=== PATIENT | female | born 1945 | race Hispanic/Latino ===

== ENCOUNTER 2017-03-06 12:55 | Emergency (ER) | payer MEDICARE, OTHER ==
[2017-03-06 13:42] LABS: #Eosinphils 0.2 thou/uL (0.0-0.7); #Lymphocytes 2.2 thou/uL (1.20-3.40); #Monocytes 0.4 thou/uL (0.11-0.59); #Neutrophils 5.8 thou/uL (1.40-6.50); %Basophils 0.2 % (0.0-1.0); %Eosinophils 2.2 % (0.0-10.0); %Lymphocytes 25.5 % (21.0-51.0); %Monocytes 5.1 % (0.0-10.0); Mean Platelet Volume 7.1 fL (7.4-10.4); Red Blood Cell (RBC) Count 4.53 mill/uL (4.20-5.40); White Blood Cell (WBC) Count 8.7 thou/uL (4.8-10.8)
[2017-03-06 14:09] LABS: ALT (SGPT) 12 U/L (8-55); AST (SGOT) 22 U/L (5-34); Alkaline Phosphatase 108 U/L (40-150); Anion Gap 14 mmol/L (10-20); BUN (Urea Nitrogen) 18 mg/dL (9.8-20.1); Bilirubin, Total 0.3 mg/dL (0.2-1.2); Calc. Creatinine Clearance 0 mL/min (70-130); Calcium 9.9 mg/dL (7.8-10.44); Carbon Dioxide 20 mmol/L (23-31); Chloride 106 mmol/L (98-107); Estimated GFR-MDRD 59; Globulin 3.9 g/dL (2.4-3.5); Lipase 101 U/L (8-78); Protein, Total 7.7 g/dL (6.0-8.3)
== END 2017-03-06 14:36 | disposition home or self-care (01) ==
LOC: ERS 12:55
DX: R10.12 Left upper quadrant pain (principal); E11.9 Type 2 diabetes mellitus without complications; I10 Essential (primary) hypertension; F32.9 Major depressive disorder, single episode, unspecified; Z79.82 Long term (current) use of aspirin; Z79.4 Long term (current) use of insulin; Z79.899 Other long term (current) drug therapy
CPT/HCPCS: 80053; 83690; 85025; 99284

== ENCOUNTER 2017-03-14 11:21 | Outpatient (CLI) | payer MEDICARE, MEDICAID ==
--- NOTE | 2017-03-14 17:17 | PET ---
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 Initial staging. C65.2. COMPARISON: None. TECHNIQUE: IV injection F-18 Fluorodeoxyglucose (FDG) dose: 13.4 mCi PET and attenuation-correction CT performed from skull base to proximal thighs. FINDINGS: SUV (standard uptake value) numbers given are maximum SUV's: Left kidney is absent. There is a left paraaortic retroperitoneal mass, with surrounding fat strandi ng. It is FDG avid, with SUV of 11.2. This is consistent with a metastatic retroperitoneal lymph nod e. The fat stranding could indicate recent surgery in this location. No other foci of suspicious hyp ermetabolic activity is visualized in any other location in abdominal cavity, pelvic cavity, thoraci c cavity, or cervical nodes. There is asymmetrically increased uptake in various muscles, indicating muscle contraction during the study. IMPRESSION: 1. Status post left nephrectomy. 2. An FDG avid left paraaortic retroperitoneal mass with surrounding fat stranding: a metastatic ly mph node and/or recent postsurgical small hematoma. 3. No other areas of potential metastatic disease. MUKUND Garnica POS: [facility]
== END 2017-03-14 11:22 | disposition home or self-care (01) ==
LOC: PET 11:21
PROVIDERS: ATTEND Internal Medicine Medical Oncology
DX: C65.9 Malignant neoplasm of unspecified renal pelvis (principal); C77.9 Secondary and unspecified malignant neoplasm of lymph node, unspecified; Z90.5 Acquired absence of kidney
CPT/HCPCS: 78815; A9552

== ENCOUNTER 2017-03-20 15:37 | Outpatient (CLI) | payer MEDICARE, MEDICAID ==
[2017-03-20 16:45] LABS: #Eosinphils 0.3 thou/uL (0.0-0.7); #Lymphocytes 1.9 thou/uL (1.20-3.40); #Monocytes 0.5 thou/uL (0.11-0.59); #Neutrophils 5.8 thou/uL (1.40-6.50); %Basophils 0.5 % (0.0-1.0); %Eosinophils 3.9 % (0.0-10.0); %Lymphocytes 22.4 % (21.0-51.0); %Monocytes 5.3 % (0.0-10.0); Hematocrit 39.6 % (36.0-47.0); Mean Platelet Volume 6.5 fL (7.4-10.4); Red Blood Cell (RBC) Count 4.54 mill/uL (4.20-5.40); White Blood Cell (WBC) Count 8.6 thou/uL (4.8-10.8)
[2017-03-20 17:09] LABS: Anion Gap 11 mmol/L (10-20); BUN (Urea Nitrogen) 15 mg/dL (9.8-20.1); Calc. Creatinine Clearance 0 mL/min (70-130); Calcium 9.2 mg/dL (7.8-10.44); Carbon Dioxide 28 mmol/L (23-31); Chloride 103 mmol/L (98-107); Estimated GFR-MDRD 60
== END 2017-03-20 15:38 | disposition home or self-care (01) ==
LOC: LABBT 15:37
PROVIDERS: ATTEND Surgery
DX: Z01.812 Encounter for preprocedural laboratory examination (principal); C64.9 Malignant neoplasm of unspecified kidney, except renal pelvis
CPT/HCPCS: 80048; 85025

== ENCOUNTER 2017-03-23 05:50 | Day surgery (SDC) | payer MEDICARE, MEDICAID ==
[2017-03-20 15:44] VITALS: BMI 47.0
[2017-03-23] MEDS ORDERED: Bupivacaine 0.25% HCL 30 ML VIAL ONE (07:12)
[2017-03-23] MEDS ORDERED: Lidocaine 2% w/Epinephrine 1:200K 20 ML VIAL ONE (07:12)
[2017-03-23] MEDS ORDERED: PHENYLEPHRINE-NS 100 MCG/ML 10 ML SYRINGE ONE (07:38)
[2017-03-23] MEDS ORDERED: Propofol 200 MG/20 ML VIAL ONE (07:38)
[2017-03-23] MEDS ORDERED: Ondansetron HCl/PF 4 MG/2 ML Vial ONE (07:38)
--- NOTE | 2017-03-23 09:27 | RAD ---
SINGLE VIEW OF THE CHEST: COMPARISON: 04/17/13. HISTORY: MediPort placement for renal cell carcinoma. FINDINGS: A single view of the chest shows a normal-size cardiomediastinal silhouette. There is a left subcla vian MediPort with its tip at the superior vena cava. No pneumothorax is seen. There is no evidenc e of consolidation, mass, or pleural effusion. IMPRESSION: Status post MediPort placement without evidence of complication. POS: [facility]
--- NOTE | 2017-03-23 17:16 | PDOC.OP ---
Operative Note - Operative Note Operative Note: PROCEDURE: Left subclavian MediPort placement with fluoroscopic guidance SURGEON: Marielena Acosta M.D. DATE OF PROCEDURE: 03/23/2017 PREOPERATIVE DIAGNOSIS: Recurrent renal cell carcinoma POSTOPERATIVE DIAGNOSIS: Recurrent renal cell carcinoma HISTORY: Patient is diagnosed with renal cell carcinoma. She is status post nephrectomy but has a recurrence in the tumor bed. Chemotherapy and/or immunotherapy has been recommended and the oncologist has requested MediPort placement for this. OPERATIVE PROCEDURE IN DETAIL: After informed consent was obtained and appropriate preoperative antibiotics were administered, the patient was taken to the operating room and placed in supine position and monitored anesthesia care was administered. The patient was then placed in Trendelenburg position and the subclavian vein accessed easily on the first attempt with excellent flow of dark venous non-pulsatile blood. A wire threaded easily and was confirmed to be in the superior vena cava by fluoroscopy. Additional local anesthesia was infused to the skin and subcutaneous tissues lateral and inferior to the access site. The skin incision was extended from the wire laterally and a subcutaneous pocket developed inferiorly. A Mediport was obtained and confirmed to fit in the subcutaneous pocket. This was secured inferiorly to the pectoralis fascia with a Prolene suture, which was clamped, but not tied. The dilator and sheath were then placed over the wire and the dilator and wire removed leaving the sheath in place. The clamped MediPort tubing was tunneled through the sheath, which was then split and removed leaving the MediPort tubing in place. The tubing was adjusted until the tip was confirmed by fluoroscopy to be in the superior vena cava just above the atrium. The tubing was clamped at the skin level and cut and the tubing secured to the port, which was then placed in the subcutaneous pocket. The previously placed suture was secured and two additional sutures were placed to fix the port in place within the pocket. The port was aspirated with the Rodriguez needle and had excellent flow of dark venous non-pulsatile blood and easily flushed without resistance. The subcutaneous tissues were closed with a running Monocryl suture, following which the skin was closed with a running subcuticular Monocryl suture. Dermabond dressings were placed and the hub was again accessed through the skin and confirmed to easily aspirate and easily flush. The course of the catheter was confirmed by fluoroscopy to be smooth with the tip appropriately located in the superior vena cava. The patient was taken her back to the day stay unit in good condition. Estimated blood loss was minimal. There were no complications. There were no specimens.
== END 2017-03-23 09:25 | disposition home or self-care (01) ==
LOC: SDC 05:50
PROVIDERS: ATTEND Surgery
PROC: 0JH60WZ Insertion of Totally Implantable Vascular Access Device into Chest Subcutaneous Tissue and Fascia, Open Approach (ICD-10-PCS; principal; 2017-03-23)
DX: C64.2 Malignant neoplasm of left kidney, except renal pelvis (principal); E11.9 Type 2 diabetes mellitus without complications; I10 Essential (primary) hypertension; E78.5 Hyperlipidemia, unspecified; M19.90 Unspecified osteoarthritis, unspecified site; Z79.4 Long term (current) use of insulin; Z79.82 Long term (current) use of aspirin; Z79.899 Other long term (current) drug therapy; Z96.1 Presence of intraocular lens; Z96.653 Presence of artificial knee joint, bilateral; Z90.710 Acquired absence of both cervix and uterus; Z90.5 Acquired absence of kidney; Z90.49 Acquired absence of other specified parts of digestive tract; Z98.890 Other specified postprocedural states
CPT/HCPCS: 36561; 71010; C1788; J1642; J2405; J2704; S0020

== ENCOUNTER 2017-04-06 08:52 | Day surgery (SDC) | payer MEDICARE, MEDICAID ==
[2017-04-06] MEDS ORDERED: Dexamethasone 20 MG in Sodium Chloride 0.9% 50 ML IVPB SCH (09:30)
[2017-04-06] MEDS ORDERED: Fosaprepitant Dimeglumine 150 MG in Sodium Chloride 0.9% 250 ML 150 ML IVPB SCH (09:30)
[2017-04-06] MEDS ORDERED: SODIUM CHLORIDE 0.9% IV SCH (09:45)
[2017-04-06] MEDS ORDERED: Palonosetron HCl 0.25 MG in Sodium Chloride 0.9% 50 ML IVPB SCH (09:45)
[2017-04-06] MEDS ORDERED: MANNITOL IV SCH (09:45)
[2017-04-06] MEDS ORDERED: GEMCITABINE HCL IVPB SCH ×2 (09:45→10:00)
[2017-04-06] MEDS ORDERED: CISPLATIN IV SCH (09:45)
[2017-04-06] MEDS ORDERED: GEMZAR IVPB SCH ×2 (09:45→10:00)
[2017-04-06] MEDS ORDERED: SODIUM CHLORIDE 0.9% IVPB SCH ×2 (09:45→10:00)
[2017-04-06] MEDS ORDERED: Sodium Chloride 0.9% 20 ML ONE (10:42)
[2017-04-06 12:20] VITALS: BP 123/60; TEMP 97.5
== END 2017-04-06 17:00 ==
LOC: ONC/OP 08:52
PROVIDERS: ATTEND Internal Medicine Medical Oncology
DX: Z51.11 Encounter for antineoplastic chemotherapy (principal); C65.2 Malignant neoplasm of left renal pelvis; E11.9 Type 2 diabetes mellitus without complications; I10 Essential (primary) hypertension; E78.5 Hyperlipidemia, unspecified; N28.9 Disorder of kidney and ureter, unspecified; Z90.5 Acquired absence of kidney; Z90.49 Acquired absence of other specified parts of digestive tract; Z90.710 Acquired absence of both cervix and uterus; Z90.722 Acquired absence of ovaries, bilateral; Z96.653 Presence of artificial knee joint, bilateral
CPT/HCPCS: 36415; 80053; 82248; 83615; 84100; 84550; 96367; 96413; 96415; 96417; A4216; J1100; J1453; J1642; J2150; J2469; J3480; J7050; J9060; J9201

== ENCOUNTER 2017-04-24 20:35 | Observation (INO) | payer MEDICARE, OTHER ==
[~2017-04-24 20:35] MED LIST: ISOVUE-370 76%-LOCM 1 ML ONE
[2017-04-24] MEDS ORDERED: Nitroglycerin 2% Ointment 1 INCH/1 GM Packet ONE (21:12)
--- NOTE | 2017-04-24 21:13 | RAD ---
PORTABLE CHEST: History: Chest pain. FINDINGS: Lungs are clear. Vascular markings normal. A Mediport catheter remains in place and is unchanged from exam of 03-23-17. Heart and mediastinum unremarkable. IMPRESSION: No acute finding. POS: [facility]
[2017-04-24 21:48] LABS: Band 2 % (5-11); Mean Platelet Volume 6.3 fL (7.4-10.4); Metamyelocyte 1 % (0-0); Myelocyte 1 % (0-0); Neutrophil 38 % (42-75); Nucleated RBC 1 % (0); Reactive Lymphocytes 1 % (0-10); Red Blood Cell (RBC) Count 3.32 mill/uL (4.20-5.40)
[2017-04-24 22:00] LABS: Troponin I Less than 0.010 ng/mL (< 0.028)
[2017-04-24 22:01] LABS: ALT (SGPT) 11 U/L (8-55); AST (SGOT) 17 U/L (5-34); Alkaline Phosphatase 86 U/L (40-150); BUN (Urea Nitrogen) 18 mg/dL (9.8-20.1); Bilirubin, Total 0.2 mg/dL (0.2-1.2); CK (CPK) 97 U/L (29-168); Calc. Creatinine Clearance 0 mL/min (70-130); Calcium 7.9 mg/dL (7.8-10.44); Carbon Dioxide 22 mmol/L (23-31); Chloride 108 mmol/L (98-107); Estimated GFR-MDRD 31; Globulin 2.7 g/dL (2.4-3.5)
[2017-04-24 22:52] LABS: Anion Gap 14 mmol/L (10-20)
--- NOTE | 2017-04-24 23:08 | CT ---
CT ANGIO CHEST WITH IV CONTRAST: Technique: Multiple axial tomograms obtained through the chest with IV enhancement in a pulmonary ang io phase. Multiplanar reconstruction 3D post processing performed. History: Chest pain. Shortness of breath. FINDINGS: Pulmonary arteries show adequate opacification. There is no evidence of pulmonary embolus identified. The lungs are clear of infiltrate. The mediastinum is unremarkable. Images through the upper abdomen show evidence of left nephrectomy. There is soft tissue mass like de nsity at the site of the left renal bed. This could represent residual and recurrent mass or adenopat hy. This is incompletely evaluated. When compared to CT of 05-14-08, both kidneys were present and un remarkable at that time. Correlate clinically regarding this finding. IMPRESSION: 1. No evidence of pulmonary embolus. 2. No acute lung process. 3. Images through the upper abdomen shows evidence of left nephrectomy. There is a soft tissue mass d ensity in the left renal bed. Recommend clinical correlation and follow up as indicated. POS: [facility]
[2017-04-25] MEDS ORDERED: Acetaminophen 325 MG TAB PO PRN (00:24)
[2017-04-25] MEDS ORDERED: Ondansetron HCl/PF 4 MG/2 ML Vial IVP PRN (00:24)
[2017-04-25] MEDS ORDERED: Ondansetron ODT 4 MG TAB SL PRN (00:24)
[2017-04-25 00:49] VITALS: BMI 44.4
[2017-04-25] MEDS ORDERED: Dextrose 5% in Water 1,000 ML IV PRN (02:43)
[2017-04-25] MEDS ORDERED: Dextrose 50% Abboject 50 ML SYRINGE SLOW IVP PRN (02:43)
[2017-04-25] MEDS ORDERED: HumaLOG 300 UNITS/3 ML VIAL SC PRN ×2 (02:43)
--- NOTE | 2017-04-25 02:43 | PDOC.EVN ---
Event Note - Event Note Event Note: [id number] h&p dICTATED 1. Chest pain 2. htn 3. dm TYPE 2 4. VINNY 5. H/O RCC
[2017-04-25] MEDS ORDERED: HYDROcodone/Acetaminophen 10/325 mg Tablet PO PRN (02:44)
[2017-04-25] MEDS ORDERED: PROVENTIL INHALER 6.7 G (200 INHALATIONS) INH PRN (02:44)
[2017-04-25] MEDS ORDERED: Docusate 100 MG CAP PO PRN (02:44)
[2017-04-25] MEDS ORDERED: Morphine ER 30 MG TAB PO PRN (02:44)
[2017-04-25 03:50] LABS: Troponin I 0.016 ng/mL (< 0.028)
[2017-04-25] MEDS: Sodium Chloride 0.9% 1,000 ML IV SCH ×2 (05:19→17:07)
[2017-04-25] MEDS: Nitroglycerin 2% Ointment 1 INCH/1 GM Packet TOP SCH ×3 (05:39→20:58)
--- NOTE | 2017-04-25 05:43 | HP ---
DATE OF ADMISSION: 04/25/2017 CHIEF COMPLAINT: Chest pain. HISTORY OF PRESENT ILLNESS: The patient is a 72-year-old female with past medical history of chest pain, past medical history of renal cell carcinoma, hypertension, diabetes mellitus type 2, currently on chemotherapy for the renal cell carcinoma, came to the ED complaining of chest pain. The patient said she started having chest pain all of a sudden, substernal pressure kind of pain, left side, moderate in intensity, pain resolved at this time. Denies any dyspnea, denies any sweating, denies any nausea with the chest pain. Denies any cough, sputum production. The chest pain persisted so she came to the ER. The pain did not radiate anywhere. PAST MEDICAL HISTORY: As per HPI. PAST SURGICAL HISTORY: MediPort placement, bilateral knee replacements, cholecystectomy. SOCIAL HISTORY: Denies smoking, denies alcohol or illicit drugs. FAMILY HISTORY: Positive for heart problems. MEDICATIONS: Reviewed. ALLERGIES: No drug allergies. REVIEW OF SYSTEMS: CONSTITUTIONAL: Fever, denies any chills. EYES: No problems. NECK: Denies any neck pain. CARDIOVASCULAR: Positive for chest pain. RESPIRATORY: Denies any cough or sputum production. GASTROINTESTINAL: Denies any nausea. Denies any vomiting. MUSCULOSKELETAL: Denies any complaints. INTEGUMENT: Denies any rash. CRANIAL NERVE SYSTEM: Denies syncope. PSYCHIATRIC: Denies anxiety. All other review of systems are reviewed and are negative. PHYSICAL EXAMINATION: VITAL SIGNS: At the time of H&P performed, blood pressure is 136/68, temperature 98.7, heart rate 96, respirations 20, pulse ox 96%. GENERAL: The patient appears comfortable. HEENT: Pupils equal, round, and reactive. ENT: Nares patent. Nose is normal. Ears normal. Teeth intact. Tongue is moist. NECK: Supple, no JVD. CARDIOVASCULAR SYSTEM: S1, S2 present. Regular rate and rhythm. No murmurs, no rubs, no gallops. RESPIRATORY SYSTEM: No wheezing, no rhonchi. Breath sounds bilaterally. GASTROINTESTINAL: Abdomen is soft, nontender, no guarding, no organomegaly, no masses felt. MUSCULOSKELETAL: No edema. NEUROLOGIC: Cranial nerve system; awake, follows commands. Strength intact, sensory intact. PSYCHIATRIC: Mood appears normal. INTEGEMENTARY: No rash seen. LABORATORY DATA: At time of H&P performed, white count 3, hemoglobin 9.7, platelet count is 247. BMP showed sodium 140, potassium 4, chloride 108, CO2 of 22, BUN of 80, creatinine 1.62. Baseline creatinine is 0.96. CT chest, no evidence of PE. ASSESSMENT AND PLAN: The patient is a 72-year-old female. 1. Chest pain, check EKG, plan to check cardiac enzymes. Plan to consult Cardiology. Plan to monitor the patient closely. 2. Hypertension. Monitor blood pressure. Continue blood pressure meds. 3. Diabetes type 2, monitor blood sugars, will give insulin sliding scale. 4. Acute kidney injury. Monitor creatinine. Gentle IV fluids, repeat BMP in a.m. 5. History of renal cell carcinoma, currently on chemo. Monitor the patient closely. The case was discussed in detail with the patient. Patient is full code. MTDD
[2017-04-25] MEDS: Ondansetron ODT 8 MG TAB PO SCH ×4 (05:56→23:59)
[2017-04-25 08:34] LABS: Mean Platelet Volume 6.1 fL (7.4-10.4); Red Blood Cell (RBC) Count 3.33 mill/uL (4.20-5.40); White Blood Cell (WBC) Count 3.4 thou/uL (4.8-10.8)
[2017-04-25 08:43] LABS: Anion Gap 9 mmol/L (10-20); BUN (Urea Nitrogen) 15 mg/dL (9.8-20.1); Calc. Creatinine Clearance 74 mL/min (70-130); Calcium 8.3 mg/dL (7.8-10.44); Carbon Dioxide 24 mmol/L (23-31); Chloride 109 mmol/L (98-107); Estimated GFR-MDRD 38
[2017-04-25 08:48] LABS: Troponin I 0.016 ng/mL (< 0.028)
[2017-04-25] MEDS ORDERED: INSULIN GLARGINE 45 UNIT SC SCH (09:00)
[2017-04-25] MEDS: Gabapentin 300 MG CAP PO SCH ×3 (09:16→20:56)
[2017-04-25] MEDS: Aspirin 325 MG TAB PO SCH (09:16)
[2017-04-25 09:23] LABS: Band 5 % (5-11); Myelocyte 4 % (0-0); Neutrophil 29 % (42-75); Reactive Lymphocytes 1 % (0-10)
[2017-04-25] MEDS: Insulin Detemir 100 UNITS/ML 45 UNITS in Pre-Filled Syringe 1 EACH SC SCH ×2 (09:37→20:57)
--- NOTE | 2017-04-25 12:32 | PDOC.EVN ---
Event Note - Event Note Event Note: Pt seen and exmained, H&P reviewed. I am assuming care. Cardiology reviewed chart, but unalbe to see pt, contacted by nursing to order Stress if it feltindicated. Pt without further CP, no SOb, no N/V/D/C, no cough or sputum, no hemoptysis. Will get cardiolyte stress and thal perfusion scan. If neg, likely home later today. Cr elevated, repeat this morning improved, upper limit of normal
[2017-04-25] MEDS: Acetaminophen 500 MG TAB PO PRN (17:08)
--- NOTE | 2017-04-25 17:15 | NM ---
STRESS ONLY NUCLEAR MEDICINE CARDIAC SPECT WITH EF AND WALL MOTION: 04/25/17 HISTORY: 72-year-old female with history of chest pain, hypertension, diabetes mellitus. Adenosine Sestamibi study was performed. Patient was injected with 29 millicuries technetium 99m Sestamibi intravenously for stress images. COMPARISON: 03/27/11. Multiple scans in the short axis, vertical long axis, and horizontal long axis demonstrates no scan e vidence for overt infarct or ischemia. LHR 0.49. End diastolic volume 89 mL. Ejection fraction of 62%. MYOCARDIAL PERFUSION WALL MOTION: Wall motion is normal. IMPRESSION: Normal stress only cardiac stress with EF and wall motion. POS: [facility]
--- NOTE | 2017-04-25 19:17 | CON ---
DATE OF CONSULTATION: 04/25/2017 HISTORY OF PRESENT ILLNESS: Ms. Rula Martínez is a 72-year-old [place] female who I initially evaluated in 09/2007 for chest discomfort. She underwent a Cardiolite stress test, which showed no evidence of underlying ischemia. Ejection fraction was 63%. She also had another stress test one year prior to that also showed no evidence of ischemia. She presented in 2008 with chest discomfort. Cardiac enzymes were unremarkable. She had been seen by her primary physician in [place] and was referred to [facility]. She apparently was to have a catheterization there, but had chest pain and was hospitalized here. She underwent cardiac catheterization, which revealed normal left ventricular function with an ejection fraction of 50% to 55%. Coronary arteries were normal. I have not seen her since that time. During the interim, she was found to have a renal cell carcinoma and has undergone left nephrectomy in 10/2016. She continued to have left flank pain and was found to have recurrence of renal cell tumor and has been undergoing chemotherapy since March. Yesterday, she had onset of a tightness along the part of the sternum radiating under her left breast and to her back. This started when she was supine in bed. She also had some associated left hand numbness, but no shortness of breath, nausea, vomiting or diaphoresis. Discomfort lasted approximately 2 hours and resolved in the emergency room when she was given aspirin 324 mg and 1 inch of nitro paste was placed topically. She denies any recurrence of discomfort since that time. She denies any similar episodes. She denies any pleuritic component. Cardiac enzymes have been unremarkable. PAST MEDICAL HISTORY: Remarkable for hypertension, diabetes, hypercholesterolemia, history of renal cell carcinoma undergoing chemotherapy and obesity. OPERATIONS: Include bilateral knee replacements, cholecystectomy and left nephrectomy. MEDICATIONS AT HOME: Include amlodipine 10 mg at bedtime, chewable aspirin 81 mg daily, atorvastatin 10 mg at bedtime, stool softener 100 mg daily, gabapentin t.i.d., Glucotrol 1 tablet t.i.d., hydrocodone p.r.n., Lantus 45 units b.i.d., metoprolol 25 b.i.d., morphine sulfate 30 mg q.12 hours p.r.n., ondansetron 8 mg q.6 hours, prochlorperazine q.6 hours p.r.n., Accupril 1.5 mg daily, sertraline 100 at bedtime, Ventolin inhaler 1 puff q.4 hours. p.r.n. ALLERGIES: None. SOCIAL HISTORY: She does not smoke or drink. FAMILY HISTORY: Brother had myocardial infarction. Two brothers had myocardial infarctions. REVIEW OF SYSTEMS: Twelve-point review of systems otherwise unremarkable. PHYSICAL EXAMINATION: VITAL SIGNS: Blood pressure 148/76 and pulse 88. HEENT: PERRL. NECK: Supple. CHEST: Clear. CARDIAC: S1 and S2 are normal without any S3, S4 or murmurs. Carotid upstrokes normal, without bruits. ABDOMEN: Obese, normal bowel sounds, no tenderness. EXTREMITIES: Revealed no clubbing, cyanosis or edema. NEUROLOGIC: Grossly intact. SKIN: Warm and dry. MUSCULOSKELETAL: Revealed palpable lower left sternal tenderness that reproduces her pain. LABORATORY AND IMAGING DATA: EKG revealed normal sinus rhythm and is unremarkable. Hemoglobin 9.6, hematocrit 29.0, white count 3400 and platelets 296,000. Sodium 138, potassium 4.1, chloride 109, carbon dioxide 24, BUN 15 and creatinine was 1.38. Cardiac enzymes are unremarkable. Cholesterol 126, triglycerides 172, HDL 26 and LDL 66. IMPRESSION: 1. Atypical chest discomfort 2 hours in duration with negative cardiac enzymes , occurring at rest. 2. Normal coronary arteries on catheterization, in 12/2008. 3. Musculoskeletal chest wall pain. 4. Hypertension. 5. Diabetes. 6. Hypercholesterolemia. 7. Positive family history. 8. History of renal cell carcinoma, currently undergoing chemotherapy. 9. Obesity. PLAN: Echocardiogram will be performed. She will undergo adenosine Cardiolite testing for further evaluation. With her renal cell carcinoma, consideration may be given to bone scan to further evaluate this area. [facility]
[2017-04-25] MEDS ORDERED: Amlodipine 10 MG TAB PO SCH (21:00)
[2017-04-25] MEDS ORDERED: Atorvastatin Calcium 10 MG TAB PO SCH (21:00)
[2017-04-26] MEDS: Nitroglycerin 2% Ointment 1 INCH/1 GM Packet TOP SCH (05:25)
[2017-04-26] MEDS: Ondansetron ODT 8 MG TAB PO SCH (05:50)
[2017-04-26] MEDS: Sodium Chloride 0.9% 1,000 ML IV SCH (05:50)
[2017-04-26 06:05] LABS: Anion Gap 11 mmol/L (10-20); BUN (Urea Nitrogen) 11 mg/dL (9.8-20.1); Calc. Creatinine Clearance 83 mL/min (70-130); Calcium 8.5 mg/dL (7.8-10.44); Carbon Dioxide 25 mmol/L (23-31); Chloride 107 mmol/L (98-107); Estimated GFR-MDRD 43
[2017-04-26 06:15] LABS: Band 1 % (5-11); Hematocrit 31.9 % (36.0-47.0); Mean Platelet Volume 5.8 fL (7.4-10.4); Metamyelocyte 1 % (0-0); Myelocyte 2 % (0-0); Neutrophil 30 % (42-75); Nucleated RBC 1 % (0); Red Blood Cell (RBC) Count 3.66 mill/uL (4.20-5.40); White Blood Cell (WBC) Count 3.7 thou/uL (4.8-10.8)
[2017-04-26 08:11] VITALS: TEMP 98.8
[2017-04-26] MEDS: Aspirin 325 MG TAB PO SCH (08:39)
[2017-04-26] MEDS: Gabapentin 300 MG CAP PO SCH (08:39)
[2017-04-26] MEDS: Insulin Detemir 100 UNITS/ML 45 UNITS in Pre-Filled Syringe 1 EACH SC SCH (08:40)
[2017-04-26] MEDS: Acetaminophen 500 MG TAB PO PRN (09:27)
[2017-04-26 10:24] VITALS: BP 164/82
--- NOTE | 2017-04-26 11:46 | DIS ---
DATE OF ADMISSION: 04/25/2017 DATE OF DISCHARGE: 04/26/2017 PRIMARY CARE PHYSICIAN: Kami Knott M.D. DISCHARGE DIAGNOSES: 1. Noncardiac chest pain. 2. History of renal cell carcinoma. 3. Diabetes mellitus type 2. 4. Obesity. 5. Essential hypertension. 6. Acute kidney injury. CONSULTATION: Cardiology, Dr. Rigoberto Pena. PROCEDURES: Nuclear thallium stress test that showed no evidence of inducible or reversible ischemia and normal ejection fraction with normal wall motion. HOSPITAL COURSE: Ms. Martínez is a pleasant 72-year-old female who presented in the [facility] department late on 04/24/2017 for evaluation of chest pain. She had a sudden onset of substern al chest pain on the left side without radiation. She rated a moderate intensity around 4-5 and was resolved by the arrival to the ER. She had no shortness of breath or sweating. No diaphoresis, no n ausea. She has not had any recent cough or sputum production. No hemoptysis. The chest pain initia lly persisted. She came to the emergency department for evaluation, but was resolved by the time she got here. It did not radiate anywhere else. She has never had a symptom like this before. Initial workup in the ER, negative biomarkers, creatinine was noted to be elevated at 1.62. We were subsequently called for admission. HOSPITAL COURSE: The patient was seen and examined by Dr. Loja and placed on observation. She w as started on IV hydration, she kept n.p.o. and echocardiogram was ordered. Cardiology consultation was requested and was seen by Dr. Pena. He recommended stress testing and if negative, cleared f or discharge home with outpatient followup. There was some concern with chest pain and her diagnosis of renal cell carcinoma that she could have metastatic disease. Overnight on 04/25/2017-04/26/2017, she had no further chest pain. A stress test done on evening of 04/25/2017 was negative for inducible ischemia and echocardiogram showed normal EF, normal wall motio n and no significant valvular disease. She was discharged home on the morning of 04/26/2017 in stable condition with outpatient followup. S he has an appointment with Dr. Jasso for her renal cell carcinoma next Monday, and already has [facility] physician visit in 2-3 weeks, which I requested that she moved up to sometime in the next 5 -7 days. PHYSICAL EXAMINATION: The patient was seen and examined on the day of discharge. Discharge plan and disposition was discussed with the patient. The patient is present at the bedside. DISCHARGE MEDICATIONS: 1. Lantus 45 units subcu b.i.d. 2. Metoprolol succinate 25 mg b.i.d. 3. Amlodipine 10 mg p.o. at bedtime. 4. Lipitor 10 mg p.o. at bedtime. 5. Aspirin 81 mg daily. 6. Albuterol inhaler 1 puff every 4 hours as needed for shortness of breath or wheezing. 7. Sertraline 100 mg p.o. at bedtime. 8. Quinapril 1.5 mg p.o. daily. 9. Glipizide 10 mg p.o. b.i.d. 10. Gabapentin 300 mg p.o. t.i.d. 11. Morphine sulfate ER 30 mg p.o. q.12 hours as needed for pain. Does not really take this anymore . 12. Hydrocodone as previously taken. 13. Docusate 100 mg p.o. daily p.r.n. constipation. 14. Prochlorperazine 1 every 6 hours. 15. Zofran 8 mg q.6 hours p.r.n. nausea. FOLLOWUP APPOINTMENTS: 1. Primary care physician within a week. 2. Dr. Jasso next Monday. 3. Discharge activity, as tolerated. DISCHARGE DIET: Diabetic, heart healthy diet recommended. DISCHARGE INSTRUCTIONS: Patient instructed to return to the emergency department for worsening or re turn of chest pain.
== END 2017-04-26 10:17 | disposition home or self-care (01) ==
LOC: ERS 20:35 → 2NO 04-25 00:21
PROVIDERS: ADMIT Internal Medicine; ATTEND Internal Medicine
DX: R07.89 Other chest pain (principal); C64.9 Malignant neoplasm of unspecified kidney, except renal pelvis; E11.9 Type 2 diabetes mellitus without complications; I10 Essential (primary) hypertension; N17.9 Acute kidney failure, unspecified; E66.9 Obesity, unspecified; Z68.41 Body mass index [BMI] 40.0-44.9, adult; Z90.49 Acquired absence of other specified parts of digestive tract; Z95.828 Presence of other vascular implants and grafts; Z96.653 Presence of artificial knee joint, bilateral
CPT/HCPCS: 71010; 71275; 78452; 80048 ×2; 80053; 80061; 82550; 82553; 82962 ×2; 84484 ×3; 85025 ×3; 93005; 93017; 93306; 99285; A9500; G0378; 36415; 36416; A4216; J0153; J1815

== ENCOUNTER 2017-05-01 09:37 | Day surgery (SDC) | payer MEDICARE, MEDICAID ==
[2017-05-01] MEDS ORDERED: Sodium Chloride 0.9% 20 ML ONE (09:49)
[2017-05-01] MEDS ORDERED: Fosaprepitant Dimeglumine 150 MG in Sodium Chloride 0.9% 250 ML 150 ML IVPB SCH (10:00)
[2017-05-01] MEDS ORDERED: Sodium Chloride 0.9% 500 ML IVPB SCH (10:15)
[2017-05-01] MEDS ORDERED: SODIUM CHLORIDE 0.9% IVPB SCH ×2 (10:15→11:00)
[2017-05-01] MEDS ORDERED: PALONOSETRON HCL IVPB SCH (10:15)
[2017-05-01] MEDS ORDERED: DEXAMETHASONE IVPB SCH (10:15)
[2017-05-01] MEDS ORDERED: Dexamethasone 20 MG in Sodium Chloride 0.9% 50 ML IVPB SCH (10:30)
[2017-05-01] MEDS ORDERED: Palonosetron HCl 0.25 MG in Sodium Chloride 0.9% 50 ML IVPB SCH (10:30)
[2017-05-01] MEDS ORDERED: SODIUM CHLORIDE 0.9% IV SCH (11:00)
[2017-05-01] MEDS ORDERED: MANNITOL IV SCH (11:00)
[2017-05-01] MEDS ORDERED: CISPLATIN IV SCH (11:00)
[2017-05-01] MEDS ORDERED: GEMCITABINE HCL IVPB SCH (11:00)
[2017-05-01 15:56] VITALS: BP 104/57; TEMP 97.9
== END 2017-05-01 17:10 | disposition home or self-care (01) ==
LOC: ONC/OP 09:37
PROVIDERS: ATTEND Internal Medicine Medical Oncology
DX: Z51.11 Encounter for antineoplastic chemotherapy (principal); C65.2 Malignant neoplasm of left renal pelvis; E11.9 Type 2 diabetes mellitus without complications; I10 Essential (primary) hypertension; E78.5 Hyperlipidemia, unspecified; M19.90 Unspecified osteoarthritis, unspecified site; N17.9 Acute kidney failure, unspecified; E66.9 Obesity, unspecified; Z68.42 Body mass index [BMI] 45.0-49.9, adult; Z79.84 Long term (current) use of oral hypoglycemic drugs; Z79.899 Other long term (current) drug therapy; Z90.49 Acquired absence of other specified parts of digestive tract; Z90.710 Acquired absence of both cervix and uterus; Z90.5 Acquired absence of kidney; Z90.722 Acquired absence of ovaries, bilateral; Z96.653 Presence of artificial knee joint, bilateral; Z98.890 Other specified postprocedural states; Z83.3 Family history of diabetes mellitus
CPT/HCPCS: 36415; 80053; 82248; 83615; 84100; 84550; 96367; 96413; 96417; A4216; C9201; J1100; J1453; J1642; J2150; J2469; J3480; J7050; J9060; J9201

== ENCOUNTER 2017-05-08 09:34 | Day surgery (SDC) | payer MEDICARE, MEDICAID ==
[2017-05-08] MEDS ORDERED: ADMIXTURE FEE IVP SCH (10:15)
[2017-05-08] MEDS ORDERED: ONDANSETRON IVP SCH (10:15)
[2017-05-08] MEDS ORDERED: [UNRECOGNIZED DRUG - OTHER] IVP SCH (10:15)
[2017-05-08] MEDS ORDERED: DEXAMETHASONE IVP SCH (10:15)
[2017-05-08] MEDS ORDERED: ADMIXTURE FEE IVPB SCH (10:30)
[2017-05-08] MEDS ORDERED: [UNRECOGNIZED DRUG - OTHER] IVPB SCH (10:30)
[2017-05-08] MEDS ORDERED: GEMCITABINE HCL IVPB SCH (10:30)
[2017-05-08 11:40] VITALS: BP 135/60; TEMP 98.7
== END 2017-05-08 12:30 | disposition home or self-care (01) ==
LOC: ONC/OP 09:34
PROVIDERS: ATTEND Internal Medicine Medical Oncology
DX: Z51.11 Encounter for antineoplastic chemotherapy (principal); C65.2 Malignant neoplasm of left renal pelvis; E11.9 Type 2 diabetes mellitus without complications; I10 Essential (primary) hypertension; E78.5 Hyperlipidemia, unspecified; Z90.5 Acquired absence of kidney; Z90.49 Acquired absence of other specified parts of digestive tract; Z96.653 Presence of artificial knee joint, bilateral; Z90.710 Acquired absence of both cervix and uterus; Z90.722 Acquired absence of ovaries, bilateral; Z79.82 Long term (current) use of aspirin; Z79.4 Long term (current) use of insulin; Z79.899 Other long term (current) drug therapy
CPT/HCPCS: 36415; 82565; 96367; 96413; J1100; J2405; J7050; J9201

== ENCOUNTER 2017-05-22 10:42 | Day surgery (SDC) | payer MEDICARE, MEDICAID ==
[2017-05-22] MEDS ORDERED: Sodium Chloride 0.9% 20 ML ONE (10:53)
[2017-05-22] MEDS ORDERED: CARBOPLATIN IVPB SCH (12:15)
[2017-05-22] MEDS ORDERED: Palonosetron HCl 0.25 MG in Sodium Chloride 0.9% 50 ML IVPB SCH (12:15)
[2017-05-22] MEDS ORDERED: SODIUM CHLORIDE 0.9% IVPB SCH ×3 (12:15→12:45)
[2017-05-22] MEDS ORDERED: Dexamethasone 20 MG in Sodium Chloride 0.9% 50 ML IVPB SCH (12:15)
[2017-05-22] MEDS ORDERED: GEMCITABINE HCL IVPB SCH ×2 (12:15→12:45)
[2017-05-22 12:50] VITALS: BP 105/55
== END 2017-05-22 17:44 | disposition home or self-care (01) ==
LOC: ONC/OP 10:42
PROVIDERS: ATTEND Internal Medicine Medical Oncology
DX: Z51.11 Encounter for antineoplastic chemotherapy (principal); C65.2 Malignant neoplasm of left renal pelvis; E11.9 Type 2 diabetes mellitus without complications; I10 Essential (primary) hypertension; E78.5 Hyperlipidemia, unspecified; N28.9 Disorder of kidney and ureter, unspecified; M19.90 Unspecified osteoarthritis, unspecified site; E66.9 Obesity, unspecified; Z79.4 Long term (current) use of insulin; Z79.899 Other long term (current) drug therapy; Z90.710 Acquired absence of both cervix and uterus; Z90.722 Acquired absence of ovaries, bilateral; Z90.5 Acquired absence of kidney; Z90.49 Acquired absence of other specified parts of digestive tract; Z96.653 Presence of artificial knee joint, bilateral; Z98.890 Other specified postprocedural states; Z68.41 Body mass index [BMI] 40.0-44.9, adult
CPT/HCPCS: 36415; 80053; 82248; 83615; 84100; 84550; 96367; 96413; 96417; A4216; J1100; J1642; J2469; J7050; J9045; J9201

== ENCOUNTER 2017-05-30 10:01 | Day surgery (SDC) | payer MEDICARE, MEDICAID ==
[2017-05-30] MEDS ORDERED: Sodium Chloride 0.9% 20 ML ONE (10:08)
[2017-05-30] MEDS ORDERED: DEXAMETHASONE IVPB SCH (10:30)
[2017-05-30] MEDS ORDERED: SODIUM CHLORIDE 0.9% IVPB SCH ×2 (10:30)
[2017-05-30] MEDS ORDERED: GEMCITABINE HCL IVPB SCH (10:30)
[2017-05-30] MEDS ORDERED: ONDANSETRON HCL IVPB SCH (10:30)
[2017-05-30 11:07] VITALS: BP 100/55; TEMP 98.3
== END 2017-05-30 13:24 | disposition home or self-care (01) ==
LOC: ONC/OP 10:01
PROVIDERS: ATTEND Internal Medicine Medical Oncology
DX: Z51.11 Encounter for antineoplastic chemotherapy (principal); C65.2 Malignant neoplasm of left renal pelvis; E11.9 Type 2 diabetes mellitus without complications; I10 Essential (primary) hypertension; E78.5 Hyperlipidemia, unspecified; N28.9 Disorder of kidney and ureter, unspecified; Z79.4 Long term (current) use of insulin; Z79.899 Other long term (current) drug therapy; Z90.49 Acquired absence of other specified parts of digestive tract; Z90.710 Acquired absence of both cervix and uterus; Z90.722 Acquired absence of ovaries, bilateral; Z96.653 Presence of artificial knee joint, bilateral; Z98.890 Other specified postprocedural states
CPT/HCPCS: 96375; 96413; A4216; J1100; J1642; J2405; J7050; J9201

== ENCOUNTER 2017-06-19 10:04 | Day surgery (SDC) | payer MEDICARE, MEDICAID ==
[2017-06-19] MEDS ORDERED: Sodium Chloride 0.9% 20 ML ONE (11:19)
[2017-06-19 12:04] VITALS: BP 107/59; TEMP 99.1
[2017-06-19] MEDS ORDERED: CARBOPLATIN IVPB SCH (13:30)
[2017-06-19] MEDS ORDERED: SODIUM CHLORIDE 0.9% IVPB SCH ×2 (13:30)
[2017-06-19] MEDS ORDERED: Palonosetron HCl 0.25 MG in Sodium Chloride 0.9% 50 ML IVPB SCH (13:30)
[2017-06-19] MEDS ORDERED: GEMCITABINE HCL IVPB SCH (13:30)
[2017-06-19] MEDS ORDERED: Dexamethasone 20 MG in Sodium Chloride 0.9% 50 ML IVPB SCH (13:30)
== END 2017-06-19 16:35 | disposition home or self-care (01) ==
LOC: ONC/OP 10:04
PROVIDERS: ATTEND Internal Medicine Medical Oncology
DX: Z51.11 Encounter for antineoplastic chemotherapy (principal); C65.2 Malignant neoplasm of left renal pelvis; E11.9 Type 2 diabetes mellitus without complications; I10 Essential (primary) hypertension; E78.5 Hyperlipidemia, unspecified; N28.9 Disorder of kidney and ureter, unspecified; Z79.82 Long term (current) use of aspirin; Z79.4 Long term (current) use of insulin; Z79.899 Other long term (current) drug therapy; Z90.5 Acquired absence of kidney; Z90.49 Acquired absence of other specified parts of digestive tract; Z90.710 Acquired absence of both cervix and uterus; Z90.722 Acquired absence of ovaries, bilateral; Z96.653 Presence of artificial knee joint, bilateral; Z98.890 Other specified postprocedural states
CPT/HCPCS: 36415; 80053; 82248; 83615; 84100; 84550; 96367; 96413; 96417; A4216; J1100; J1642; J2469; J7050; J9045; J9201

== ENCOUNTER 2017-06-22 12:38 | Outpatient (CLI) | payer MEDICARE, MEDICAID ==
--- NOTE | 2017-06-22 16:14 | PET ---
RADIONUCLIDE PET SCAN WITH CT ATTENUATION CORRECTION AND SPECT IMAGIN06/22/17 HISTORY: Renal cell carcinoma with metastases. Restaging. COMPARISON: 03/14/17. FINDINGS: Physiologic uptake of radiotracer is present throughout the enteric system and along each urinary tra ct. Muscular uptake of the paraspinal muscles and at the left shoulder is similar in appearance to th e prior study. Activity is associated with the muscles of phonation. Left kidney is surgically absent. Residual soft tissue density with the appearance of adenopathy just to the left of the aorta at the level of the left renal fossa now shows a maximum SUV of 3.3 (previo usly 11.2). No new areas of hypermetabolic activity are apparent. IMPRESSION: Significant improvement, with near complete resolution of the hypermetabolic activity associated with the left renal fossa lesion that may represent adenopathy or residual disease. No new abnormalities are evident. POS: [facility]
== END 2017-06-22 12:39 | disposition home or self-care (01) ==
LOC: PET 12:38
PROVIDERS: ATTEND Internal Medicine Medical Oncology
DX: C64.9 Malignant neoplasm of unspecified kidney, except renal pelvis (principal); N28.89 Other specified disorders of kidney and ureter
CPT/HCPCS: 78815; A9552

== ENCOUNTER 2017-07-10 10:23 | Day surgery (SDC) | payer MEDICARE, MEDICAID ==
[2017-07-10] MEDS ORDERED: Sodium Chloride 0.9% 20 ML ONE (10:40)
[2017-07-10] MEDS ORDERED: GEMCITABINE HCL IVPB SCH (10:45)
[2017-07-10] MEDS ORDERED: Dexamethasone 20 MG, Admixture Fee 1 EACH in Sodium Chloride 0.9% 50 ML IVPB SCH (10:45)
[2017-07-10] MEDS ORDERED: Palonosetron HCl 0.25 MG, Admixture Fee 1 EACH in Sodium Chloride 0.9% 50 ML IVPB SCH (10:45)
[2017-07-10] MEDS ORDERED: CARBOPLATIN IVPB SCH (10:45)
[2017-07-10] MEDS ORDERED: SODIUM CHLORIDE IVPB SCH ×2 (10:45)
[2017-07-10] MEDS ORDERED: ADMIXTURE FEE IVPB SCH ×2 (10:45)
[2017-07-10 11:30] VITALS: BP 123/58; TEMP 97.9
== END 2017-07-10 14:10 | disposition home or self-care (01) ==
LOC: ONC/OP 10:23
PROVIDERS: ATTEND Internal Medicine Medical Oncology
DX: Z51.11 Encounter for antineoplastic chemotherapy (principal); C65.2 Malignant neoplasm of left renal pelvis; E11.9 Type 2 diabetes mellitus without complications; I10 Essential (primary) hypertension; E78.5 Hyperlipidemia, unspecified; N28.9 Disorder of kidney and ureter, unspecified; Z90.49 Acquired absence of other specified parts of digestive tract; Z90.710 Acquired absence of both cervix and uterus; Z90.722 Acquired absence of ovaries, bilateral; Z96.653 Presence of artificial knee joint, bilateral; Z98.890 Other specified postprocedural states
CPT/HCPCS: 36415; 80053; 82248; 83615; 84100; 84550; 96367; 96413; 96417; A4216; J1100; J1642; J2469; J7050; J9045; J9201

== ENCOUNTER 2017-07-17 09:48 | Day surgery (SDC) | payer MEDICARE, MEDICAID ==
[2017-07-17] MEDS ORDERED: Sodium Chloride 0.9% 30 ML ONE (10:06)
[2017-07-17] MEDS ORDERED: SODIUM CHLORIDE IVPB SCH (10:15)
[2017-07-17] MEDS ORDERED: GEMCITABINE HCL IVPB SCH (10:15)
[2017-07-17] MEDS ORDERED: Pegfilgrastim 6 MG/0.6 ML Delivery Kit SQ SCH (10:15)
[2017-07-17] MEDS ORDERED: DEXAMETHASONE IVPB SCH (10:15)
[2017-07-17] MEDS ORDERED: ONDANSETRON IVPB SCH (10:15)
[2017-07-17] MEDS ORDERED: ADMIXTURE FEE IVPB SCH ×2 (10:15)
[2017-07-17] MEDS ORDERED: [UNRECOGNIZED DRUG - OTHER] IVPB SCH (10:15)
[2017-07-17 13:17] VITALS: BP 116/57; TEMP 98.5
== END 2017-07-17 12:26 | disposition home or self-care (01) ==
LOC: ONC/OP 09:48
PROVIDERS: ATTEND Internal Medicine Medical Oncology
DX: Z51.11 Encounter for antineoplastic chemotherapy (principal); E11.9 Type 2 diabetes mellitus without complications; I10 Essential (primary) hypertension; E78.5 Hyperlipidemia, unspecified; N28.9 Disorder of kidney and ureter, unspecified; Z79.84 Long term (current) use of oral hypoglycemic drugs; Z79.899 Other long term (current) drug therapy; Z90.49 Acquired absence of other specified parts of digestive tract; Z90.710 Acquired absence of both cervix and uterus; Z90.722 Acquired absence of ovaries, bilateral; Z96.653 Presence of artificial knee joint, bilateral
CPT/HCPCS: 96367; 96372; 96377; 96413; A4216; J1100; J1642; J2405; J2505; J7050; J9201

== ENCOUNTER 2017-07-31 10:59 | Day surgery (SDC) | payer MEDICARE, MEDICAID ==
[2017-07-31] MEDS ORDERED: diphenhydrAMINE 25 MG CAP PO SCH (11:15)
[2017-07-31] MEDS ORDERED: Acetaminophen 500 MG TAB PO SCH (11:15)
[2017-07-31] MEDS ORDERED: Sodium Chloride 0.9% 30 ML ONE (11:32)
[2017-07-31 18:55] VITALS: BP 159/72; TEMP 98.8
[2017-07-31 19:53] LABS: Anisocytosis SLIGHT = 6-15 cells (100X) (0-5/hpf); Band 12 % (5-11); Hemoglobin 9.1 g/dL (12.0-16.0); Lymphocytes 19 % (21-51); MDiff Complete? YES; Mean Corpuscular HGB CONC 33.6 g/dL (32.0-36.0); Mean Corpuscular Hemoglobin 31.9 pg (27.0-31.0); Mean Platelet Volume 9.7 fL (7.4-10.4); Metamyelocyte 3 % (0-0); Monocytes 7 % (0-10); Myelocyte 3 % (0-0); Neutrophil 53 % (42-75); Nucleated RBC 5 % (0); Ovalocytes SLIGHT = 2-5 cells (100X) (0-1/hpf); PLT Morphology Comment Appears Decreased; Platelet Count 57 thou/uL (130-400); Polychromasia MODERATE = 3-4 cells (100X) (0-2/hpf); Reactive Lymphocytes 3 % (0-10); Red Blood Cell (RBC) Count 2.86 mill/uL (4.20-5.40); Schistocytes SLIGHT = 2-5 cells (100X) (0-1/hpf); Tear Drops SLIGHT = 2-5 cells (100X) (0-1/hpf); Toxic Granulation SLIGHT; White Blood Cell (WBC) Count 8.7 thou/uL (4.8-10.8)
== END 2017-07-31 19:02 | disposition home or self-care (01) ==
LOC: ONC/OP 10:59
PROVIDERS: ATTEND Internal Medicine Medical Oncology
PROC: 30233N1 Transfusion of Nonautologous Red Blood Cells into Peripheral Vein, Percutaneous Approach (ICD-10-PCS; principal; 2017-07-31)
DX: C65.2 Malignant neoplasm of left renal pelvis (principal); D63.0 Anemia in neoplastic disease; D69.59 Other secondary thrombocytopenia; E11.9 Type 2 diabetes mellitus without complications; I10 Essential (primary) hypertension; E78.5 Hyperlipidemia, unspecified; Z79.4 Long term (current) use of insulin; Z79.82 Long term (current) use of aspirin; Z79.899 Other long term (current) drug therapy; Z90.5 Acquired absence of kidney; Z90.6 Acquired absence of other parts of urinary tract; Z98.890 Other specified postprocedural states
CPT/HCPCS: 36430; 80053; 82248; 83615; 84100; 84550; 85025; 86850; 86900; 86901; A4216; P9016

== ENCOUNTER 2017-08-08 13:24 | Day surgery (SDC) | payer MEDICARE, MEDICAID ==
[2017-08-08] MEDS ORDERED: Sodium Chloride 0.9% 40 ML ONE (13:33)
[2017-08-08] MEDS ORDERED: PALONOSETRON HCL 0.05 MG/ML 5 ML VIAL IVP SCH (13:45)
[2017-08-08] MEDS ORDERED: CARBOPLATIN IVPB SCH (13:45)
[2017-08-08] MEDS ORDERED: GEMCITABINE HCL IVPB SCH (13:45)
[2017-08-08] MEDS ORDERED: SODIUM CHLORIDE 0.9% IVPB SCH ×2 (13:45)
[2017-08-08] MEDS ORDERED: Dexamethasone 20 MG in Sodium Chloride 0.9% 50 ML IVPB SCH (13:45)
[2017-08-08 15:14] VITALS: BP 133/64; TEMP 97.6
== END 2017-08-08 17:10 | disposition home or self-care (01) ==
LOC: ONC/OP 13:24
PROVIDERS: ATTEND Internal Medicine Medical Oncology
DX: Z51.11 Encounter for antineoplastic chemotherapy (principal); C56.2 Malignant neoplasm of left ovary; I10 Essential (primary) hypertension; E11.9 Type 2 diabetes mellitus without complications; E78.5 Hyperlipidemia, unspecified; Z79.82 Long term (current) use of aspirin; Z79.4 Long term (current) use of insulin; Z79.899 Other long term (current) drug therapy
CPT/HCPCS: 96367; 96375; 96413; 96417; A4216; J1100; J1642; J2469; J7050; J9045; J9201

== ENCOUNTER 2017-08-15 10:13 | Day surgery (SDC) | payer MEDICARE, MEDICAID ==
[2017-08-15] MEDS ORDERED: Sodium Chloride 0.9% 30 ML ONE (10:42)
[2017-08-15] MEDS ORDERED: ONDANSETRON IVPB SCH (10:45)
[2017-08-15] MEDS ORDERED: [UNRECOGNIZED DRUG - OTHER] IVPB SCH (10:45)
[2017-08-15] MEDS ORDERED: ADMIXTURE FEE IVPB SCH ×2 (10:45→11:00)
[2017-08-15] MEDS ORDERED: DEXAMETHASONE IVPB SCH (10:45)
[2017-08-15] MEDS ORDERED: SODIUM CHLORIDE IVPB SCH (11:00)
[2017-08-15] MEDS ORDERED: GEMCITABINE HCL IVPB SCH (11:00)
[2017-08-15 12:14] VITALS: BP 119/66; TEMP 97.9
== END 2017-08-15 13:13 | disposition home or self-care (01) ==
LOC: ONC/OP 10:13
PROVIDERS: ATTEND Internal Medicine Medical Oncology
DX: Z51.11 Encounter for antineoplastic chemotherapy (principal); C65.2 Malignant neoplasm of left renal pelvis; I10 Essential (primary) hypertension; E11.9 Type 2 diabetes mellitus without complications; N28.9 Disorder of kidney and ureter, unspecified; E78.5 Hyperlipidemia, unspecified; E66.9 Obesity, unspecified; Z68.42 Body mass index [BMI] 45.0-49.9, adult; Z79.4 Long term (current) use of insulin; Z79.899 Other long term (current) drug therapy; Z90.6 Acquired absence of other parts of urinary tract; Z90.5 Acquired absence of kidney; Z90.49 Acquired absence of other specified parts of digestive tract; Z90.710 Acquired absence of both cervix and uterus; Z90.722 Acquired absence of ovaries, bilateral; Z98.890 Other specified postprocedural states; Z83.3 Family history of diabetes mellitus
CPT/HCPCS: 96367; 96413; A4216; J1100; J2405; J7050; J9201

== ENCOUNTER 2017-08-21 11:42 | Day surgery (SDC) | payer MEDICARE, MEDICAID ==
[2017-08-21] MEDS ORDERED: diphenhydrAMINE 25 MG CAP PO SCH (12:00)
[2017-08-21] MEDS ORDERED: Acetaminophen 500 MG TAB PO SCH (12:00)
[2017-08-21] MEDS ORDERED: Sodium Chloride 0.9% 30 ML ONE (12:08)
[2017-08-21 17:37] VITALS: BP 144/65; TEMP 98.7
[2017-08-21 18:15] LABS: #Lymphocytes 0.9 thou/uL (1.20-3.40); #Neutrophils 2.4 thou/uL (1.40-6.50); %Basophils 1.1 % (0.0-1.0); %Eosinophils 0.9 % (0.0-10.0); %Lymphocytes 26.9 % (21.0-51.0); %Monocytes 0.8 % (0.0-10.0); %Neutrophils 70.3 % (42.0-75.0); Mean Corpuscular HGB CONC 33.9 g/dL (32.0-36.0); Mean Corpuscular Hemoglobin 31.7 pg (27.0-31.0); Mean Corpuscular Volume 93.5 fl (81.0-99.0); RBC Distribution Width 16.4 % (11.5-14.5); Red Blood Cell (RBC) Count 3.17 mill/uL (4.20-5.40); White Blood Cell (WBC) Count 3.4 thou/uL (4.8-10.8)
[2017-08-21 18:29] LABS: Mean Platelet Volume 9.8 fL (7.4-10.4); PLT Morphology Comment Appears Decreased; Platelet Count 23 thou/uL (130-400)
== END 2017-08-21 17:53 | disposition home or self-care (01) ==
LOC: ONC/OP 11:42
PROVIDERS: ATTEND Internal Medicine Medical Oncology
PROC: 30233N1 Transfusion of Nonautologous Red Blood Cells into Peripheral Vein, Percutaneous Approach (ICD-10-PCS; principal; 2017-08-21)
DX: C65.2 Malignant neoplasm of left renal pelvis (principal); D63.0 Anemia in neoplastic disease; D69.6 Thrombocytopenia, unspecified; E11.9 Type 2 diabetes mellitus without complications; I10 Essential (primary) hypertension; E78.5 Hyperlipidemia, unspecified; Z79.82 Long term (current) use of aspirin; Z79.4 Long term (current) use of insulin; Z79.899 Other long term (current) drug therapy; Z90.5 Acquired absence of kidney; Z90.6 Acquired absence of other parts of urinary tract
CPT/HCPCS: 36415; 36430; 85025; 86850; 86900; 86901; A4216; J1642; P9016

== ENCOUNTER 2017-08-29 12:43 | Outpatient (CLI) | payer MEDICARE, MEDICAID ==
--- NOTE | 2017-08-29 16:10 | PET ---
PET CT EVALUATION 08/29/17 INDICATION: History of left renal malignancy. COMPARISON: Prior exam dated 06/22/17. RADIOPHARMACEUTICAL: 12.6 millicuries of F18 FDG IV. FINDINGS: BIODISTRIBUTION: There is some mild increased metabolic activity seen within the paraspinal musculature likely related to muscular atrophy. The biodistribution for the examination otherwise appears acceptable. HEAD AND NECK: No hypermetabolic mass or lymphadenopathy seen within head and neck region. CHEST: No hypermetabolic pulmonary nodule or lymphadenopathy is evident. No pleural effusion is evident. ABDOMEN AND PELVIS: The soft tissue density seen within the left nephrectomy bed is slightly less prominent on the compar pollo exam where it measured approximately 3 cm in its greatest axial dimension. Now measures 1.9 cm. There is no associated hypermetabolic uptake. No hypermetabolic lymphadenopathy is evident. No hyperm etabolic ascites is present. SKIN AND OSSEOUS STRUCTURES: No hypermetabolic skin or osseous lesion is identified. IMPRESSION: 1. The soft tissue nodule seen within the left nephrectomy operative bed has decreased in size f rom the comparison examination, now measuring 1.9 cm where it previously measured 3 cm. There is no a ssociated hypermetabolic activity associated with the soft tissue nodule. 2. No evidence of hypermetabolic recurrent disease or metastatic disease. POS: [facility]
== END 2017-08-29 12:44 | disposition home or self-care (01) ==
LOC: PET 12:43
PROVIDERS: ATTEND Internal Medicine Medical Oncology
DX: C67.9 Malignant neoplasm of bladder, unspecified (principal); N28.89 Other specified disorders of kidney and ureter; Z90.5 Acquired absence of kidney
CPT/HCPCS: 78815; A9552

== ENCOUNTER 2017-09-07 11:47 | Day surgery (SDC) | payer MEDICARE, MEDICAID ==
[2017-09-07] MEDS ORDERED: Sodium Chloride 0.9% 40 ML ONE (11:53)
[2017-09-07 12:00] VITALS: BP 158/65; TEMP 98.4
[2017-09-07] MEDS ORDERED: CARBOPLATIN IVPB SCH (12:15)
[2017-09-07] MEDS ORDERED: SODIUM CHLORIDE 0.9% IVPB SCH ×2 (12:15)
[2017-09-07] MEDS ORDERED: PALONOSETRON HCL 0.05 MG/ML 5 ML VIAL IVP SCH (12:15)
[2017-09-07] MEDS ORDERED: Dexamethasone 20 MG in Sodium Chloride 0.9% 50 ML IVPB SCH (12:15)
[2017-09-07] MEDS ORDERED: GEMCITABINE HCL IVPB SCH (12:15)
== END 2017-09-07 15:17 | disposition home or self-care (01) ==
LOC: ONC/OP 11:47
PROVIDERS: ATTEND Internal Medicine Medical Oncology
DX: Z51.11 Encounter for antineoplastic chemotherapy (principal); C65.2 Malignant neoplasm of left renal pelvis; E11.9 Type 2 diabetes mellitus without complications; I10 Essential (primary) hypertension; E78.5 Hyperlipidemia, unspecified; Z79.4 Long term (current) use of insulin; Z79.82 Long term (current) use of aspirin; Z79.899 Other long term (current) drug therapy; Z90.5 Acquired absence of kidney; Z90.6 Acquired absence of other parts of urinary tract; Z98.890 Other specified postprocedural states
CPT/HCPCS: 36415; 80053; 82248; 83615; 84100; 84550; 96367; 96375; 96413; 96417; A4216; J1100; J1642; J2469; J7050; J9045; J9201

== ENCOUNTER 2017-09-28 08:26 | Outpatient (CLI) | payer MEDICARE, MEDICAID | END 2017-09-28 08:27 | disposition home or self-care (01) | LOC: BICMRI 08:26 | PROVIDERS: ATTEND Internal Medicine Medical Oncology | DX: C65.2 Malignant neoplasm of left renal pelvis (principal); R51 Headache; H93.13 Tinnitus, bilateral | CPT/HCPCS: 70553 ==

== ENCOUNTER 2017-10-05 12:58 | Day surgery (SDC) | payer MEDICARE, MEDICAID ==
[2017-10-05 13:30] VITALS: BP 153/66; TEMP 98.8
[2017-10-05] MEDS ORDERED: Pembrolizumab 200 MG, Admixture Fee 1 EACH in Sodium Chloride 0.9% 250 ML 250 ML IV SCH (13:30)
[2017-10-05] MEDS ORDERED: Sodium Chloride 0.9% 20 ML ONE (14:31)
== END 2017-10-05 14:30 | disposition home or self-care (01) ==
LOC: ONC/OP 12:58
PROVIDERS: ATTEND Internal Medicine Medical Oncology
DX: Z51.11 Encounter for antineoplastic chemotherapy (principal); C65.2 Malignant neoplasm of left renal pelvis; E11.9 Type 2 diabetes mellitus without complications; I10 Essential (primary) hypertension; E78.5 Hyperlipidemia, unspecified; N28.9 Disorder of kidney and ureter, unspecified; Z79.4 Long term (current) use of insulin; Z79.899 Other long term (current) drug therapy; Z98.890 Other specified postprocedural states
CPT/HCPCS: 96413; A4216; J1642; J7050; J9271

== ENCOUNTER 2017-10-24 14:10 | Day surgery (SDC) | payer MEDICARE, MEDICAID ==
[2017-10-24] MEDS ORDERED: Pembrolizumab 200 MG, Admixture Fee 1 EACH in Sodium Chloride 0.9% 250 ML 250 ML IV SCH (14:30)
== END 2017-10-24 15:47 | disposition home or self-care (01) ==
LOC: ONC/OP 14:10
PROVIDERS: ATTEND Internal Medicine Medical Oncology
DX: Z51.11 Encounter for antineoplastic chemotherapy (principal); C65.2 Malignant neoplasm of left renal pelvis; E11.9 Type 2 diabetes mellitus without complications; I10 Essential (primary) hypertension; E78.5 Hyperlipidemia, unspecified; Z79.82 Long term (current) use of aspirin; Z79.4 Long term (current) use of insulin; Z79.899 Other long term (current) drug therapy
CPT/HCPCS: 36415; 80053; 82248; 83615; 84100; 84443; 84550; 96413; J7050; J9271

== ENCOUNTER 2017-11-14 14:23 | Day surgery (SDC) | payer MEDICARE, MEDICAID ==
[2017-11-14] MEDS ORDERED: Sodium Chloride 0.9% 30 ML ONE (14:33)
[2017-11-14] MEDS ORDERED: Pembrolizumab 200 MG, Admixture Fee 1 EACH in Sodium Chloride 0.9% 250 ML 250 ML IV SCH (15:00)
[2017-11-14 15:03] VITALS: BP 142/69; TEMP 98.3
== END 2017-11-14 16:00 | disposition home or self-care (01) ==
LOC: ONC/OP 14:23
PROVIDERS: ATTEND Internal Medicine Medical Oncology
DX: Z51.11 Encounter for antineoplastic chemotherapy (principal); C65.2 Malignant neoplasm of left renal pelvis; E11.9 Type 2 diabetes mellitus without complications; I10 Essential (primary) hypertension; E78.5 Hyperlipidemia, unspecified
CPT/HCPCS: 36415; 80053; 82248; 83615; 84100; 84443; 84550; 96413; A4216; J1642; J7050; J9271

== ENCOUNTER 2017-12-05 12:11 | Day surgery (SDC) | payer MEDICARE, MEDICAID ==
[2017-12-05] MEDS ORDERED: Sodium Chloride 0.9% 30 ML ONE (12:28)
[2017-12-05] MEDS ORDERED: Pembrolizumab 200 MG, Admixture Fee 1 EACH in Sodium Chloride 0.9% 250 ML 250 ML IV SCH (12:45)
[2017-12-05 13:55] VITALS: BP 135/70; TEMP 98.1
== END 2017-12-05 14:45 | disposition home or self-care (01) ==
LOC: ONC/OP 12:11
PROVIDERS: ATTEND Internal Medicine Medical Oncology
DX: Z51.11 Encounter for antineoplastic chemotherapy (principal); C65.2 Malignant neoplasm of left renal pelvis; E11.9 Type 2 diabetes mellitus without complications; I10 Essential (primary) hypertension; E78.5 Hyperlipidemia, unspecified; Z90.710 Acquired absence of both cervix and uterus
CPT/HCPCS: 36415; 80053; 82248; 83615; 84100; 84443; 84550; 96413; A4216; J1642; J7050; J9271

== ENCOUNTER 2017-12-20 12:56 | Outpatient (CLI) | payer MEDICARE, MEDICAID | END 2017-12-20 12:57 | disposition home or self-care (01) | LOC: BICMAMMO 12:56 | PROVIDERS: ATTEND Family Medicine | DX: Z12.31 Encounter for screening mammogram for malignant neoplasm of breast (principal); R92.1 Mammographic calcification found on diagnostic imaging of breast; Z85.528 Personal history of other malignant neoplasm of kidney | CPT/HCPCS: 77063; 77067 ==

== ENCOUNTER 2017-12-26 12:45 | Day surgery (SDC) | payer MEDICARE, MEDICAID ==
[2017-12-26] MEDS ORDERED: Sodium Chloride 0.9% 30 ML ONE (12:51)
[2017-12-26] MEDS ORDERED: Pembrolizumab 200 MG in Sodium Chloride 0.9% 250 ML 250 ML IV SCH (13:00)
[2017-12-26 13:35] VITALS: BP 116/59; TEMP 98.6
== END 2017-12-26 14:10 | disposition home or self-care (01) ==
LOC: ONC/OP 12:45
PROVIDERS: ATTEND Internal Medicine Medical Oncology
DX: Z51.11 Encounter for antineoplastic chemotherapy (principal); C65.2 Malignant neoplasm of left renal pelvis; E11.9 Type 2 diabetes mellitus without complications; I10 Essential (primary) hypertension; E78.5 Hyperlipidemia, unspecified; Z79.82 Long term (current) use of aspirin; Z79.899 Other long term (current) drug therapy
CPT/HCPCS: 96413; A4216; J1642; J7050; J9271

== ENCOUNTER 2018-01-15 11:00 | Day surgery (SDC) | payer MEDICARE, MEDICAID ==
[2018-01-15] MEDS ORDERED: Pembrolizumab 200 MG in Sodium Chloride 0.9% 250 ML 250 ML IV SCH (11:15)
[2018-01-15] MEDS ORDERED: Sodium Chloride 0.9% 20 ML ONE (11:16)
[2018-01-15 11:57] VITALS: BP 120/59; TEMP 98.5
== END 2018-01-15 16:22 | disposition home or self-care (01) ==
LOC: ONC/OP 11:00
PROVIDERS: ATTEND Internal Medicine Medical Oncology
DX: Z51.11 Encounter for antineoplastic chemotherapy (principal); C65.2 Malignant neoplasm of left renal pelvis; E11.9 Type 2 diabetes mellitus without complications; I10 Essential (primary) hypertension; E78.5 Hyperlipidemia, unspecified; Z79.4 Long term (current) use of insulin; Z79.899 Other long term (current) drug therapy
CPT/HCPCS: 36415; 80053; 82248; 83615; 84100; 84443; 84550; 96413; A4216; J1642; J7050; J9271

== ENCOUNTER 2018-01-18 11:45 | Outpatient (CLI) | payer MEDICARE, MEDICAID ==
--- NOTE | 2018-01-18 15:17 | PET ---
PET SCAN: HISTORY: 73-year-old female with renal carcinoma (left renal pelvis). Status post left nephrectomy on 10/30/16 . Exam requested for restaging. Last chemotherapy was 01/15/18. TECHNIQUE: PET scanning with CT attenuation correction was performed from the base of the brain to the proximal thighs following the intravenous administration of 13.3 mCi F18-FDG in the right antecubital fossa. I maging was performed after an uptake interval of 54 minutes. COMPARISON: PET CT dated 08/29/17. FINDINGS: There is hypermetabolic activity in a 2.5 cm mass in the left periaortic region/nephrectomy bed with a SUV of 9.7. This mass increased in size from about 2.0 cm on the previous study to 2.5 cm on the cu rrent exam. No tori hypermetabolism in the neck, chest, axilla, or pelvis. No hypermetabolic pulmonary nodules, liver, adrenal, or skeletal lesions are seen. There is physiologic activity in the GI and tracts, heart, and visualized portions of the brain. The CT scan used for attenuation correction demonstrates no evidence of pleural effusions or ascites. There is sigmoid diverticulosis. IMPRESSION: Findings are suspicious for recurrent/metastatic disease. POS: [facility]
== END 2018-01-18 11:46 | disposition home or self-care (01) ==
LOC: PET 11:45
PROVIDERS: ATTEND Internal Medicine Medical Oncology
DX: C65.2 Malignant neoplasm of left renal pelvis (principal)
CPT/HCPCS: 78815; A9552

== ENCOUNTER 2018-06-20 07:59 | Outpatient (CLI) | payer MEDICARE, MEDICAID ==
--- NOTE | 2018-06-20 09:26 | CT ---
CT ABDOMEN AND PELVIS WITH IV AND ORAL CONTRAST: History: Cancer of the left renal pelvis. Abnormal PET scan. Left flank pain. Comparison: Prior PET exams from 01-18-18 and 08-29-17. FINDINGS: Lung bases are clear. Oral contrast is apparent within the distal esophagus. Calcified granulomata of the liver are consistent with healed granulomatous disease. Gallbladder is surgically absent with as sociated distention of the biliary system. Degenerative changes lumbar spine. Left kidney is surgically absent. At the left renal bed, a poorly defined oval heterogeneous soft tis flash density mass is now 3.2 cm depth where it was 2.5 cm on the previous study. Other measurements ar e 2.5 cm length x 2.8 cm width. There is subtle stranding of the adjacent fat. Immediately superior a nd posterior to this area, a new ill-defined low density lesion abutting the medial inferior margin o f the spleen is 2.5 cm length x 2.7 cm depth x 1.9 cm width. It was not apparent on the noncontrast C T images from recent PET scans. No hypermetabolic activity was apparent at this location on the prior scans. IMPRESSION: 1. Continued enlargement of the left renal bed mass, as detailed above. A new low density mass is pre sent immediately more superior, abutting the posterior medial margin of the spleen. 2. Gastroesophageal reflux. POS: [facility]
[2018-06-20] MEDS ORDERED: ISOVUE-370 76%-LOCM 1 ML ONE (11:29)
== END 2018-06-20 08:00 | disposition home or self-care (01) ==
LOC: BICCT 07:59
PROVIDERS: ATTEND Internal Medicine Medical Oncology
DX: C65.2 Malignant neoplasm of left renal pelvis (principal); K21.9 Gastro-esophageal reflux disease without esophagitis; R16.1 Splenomegaly, not elsewhere classified; N28.89 Other specified disorders of kidney and ureter
CPT/HCPCS: 74177

== ENCOUNTER 2018-08-01 15:38 | Inpatient (IN) | payer MEDICARE, OTHER ==
--- NOTE | 2018-08-01 16:54 | RAD ---
PORTABLE CHEST: Date: 08/01/18 HISTORY: Patient on chemotherapy. Weakness. Cough. FINDINGS: Heart size is within normal limits. Left-sided MediPort catheter is present. The lungs are clear of a ny infiltrative process. IMPRESSION: No active intrathoracic disease. POS: [facility]
[2018-08-01 17:19] LABS: #Lymphocytes 0.6 thou/uL (1.20-3.40); #Monocytes 0.1 thou/uL (0.11-0.59); %Basophils 0.2 % (0.0-1.0); %Eosinophils 0.6 % (0.0-10.0); %Lymphocytes 22.6 % (21.0-51.0); %Neutrophils 71.5 % (42.0-75.0); Hemoglobin 8.5 g/dL (12.0-16.0); Mean Corpuscular HGB CONC 32.7 g/dL (32.0-36.0); Mean Corpuscular Hemoglobin 30.5 pg (27.0-31.0); Mean Corpuscular Volume 93.2 fL (78.0-98.0); Mean Platelet Volume 7.3 fL (7.4-10.4); Platelet Count 223 thou/uL (130-400); RBC Distribution Width 15.5 % (11.5-14.5); Red Blood Cell (RBC) Count 2.79 mill/uL (4.20-5.40); White Blood Cell (WBC) Count 2.8 thou/uL (4.8-10.8)
[2018-08-01 17:24] LABS: ALT (SGPT) 14 U/L (8-55); AST (SGOT) 15 U/L (5-34); Albumin 3.5 g/dL (3.4-4.8); Alkaline Phosphatase 82 U/L (40-150); Anion Gap 14 mmol/L (10-20); BUN (Urea Nitrogen) 30 mg/dL (9.8-20.1); Bilirubin, Total 0.4 mg/dL (0.2-1.2); CK (CPK) 38 U/L (29-168); Calc. Creatinine Clearance 0 mL/min (70-130); Calcium 8.6 mg/dL (7.8-10.44); Carbon Dioxide 16 mmol/L (23-31); Chloride 107 mmol/L (98-107); Estimated GFR-MDRD 48; Globulin 2.8 g/dL (2.4-3.5); Glucose 252 mg/dL (83-110); Magnesium 1.3 mg/dL (1.6-2.6); Protein, Total 6.3 g/dL (6.0-8.3); Sodium 133 mmol/L (136-145)
[2018-08-01 17:44] LABS: Bilirubin Negative (Negative); Blood, Urine Large (Negative); Clarity CLEAR (Clear); Glucose, Urine (Dipstick) Negative (Negative); Leukocyte Negative (Negative); Nitrite Negative (Negative); Protein, Urine (Dipstick) Negative (Neg-Trace); Specific Gravity, Urine 1.026 (1.002-1.036); Urobilinogen 0.2 mg/dL (0.2-1.0); pH, Urine 5.5 (5.0-9.0)
[2018-08-01 17:47] LABS: Bacteria/HPF None Seen HPF (None Seen); Hyaline Casts/LPF 4-6 HYALINE CAST LPF (0-3 Hyaline); Pathc Cast-AUWi Flag 1.01 (0-2.49); Squamous Epithelial 0-3 HPF (0-3); WBC/HPF 0-3 HPF (0-3)
[2018-08-01 18:05] LABS: RBC/HPF 0-3 HPF (0-3)
--- NOTE | 2018-08-01 18:52 | CT ---
CTA CHEST WITH CONTRAST: 08/01/18 Multiple axial tomograms obtained through chest with IV enhancement following an angio protocol with multiplanar reconstruction and 3D postprocessing. INDICATIONS: Shortness of breath. Dyspnea. Weakness. FINDINGS: The pulmonary arteries show adequate enhancement. No evidence of pulmonary embolus identified. Thorac ic aorta is unremarkable. No evidence of dissection. The lung are well aerated. There is no effusion. Calcified granuloma in the right middle lobe. There is hazy ground glass opacity in the posterior left lower lobe which appears new when compared t o the CT of 06/20/18 and could represent early infiltrate. Images through the upper abdomen show evide nce of left nephrectomy. There is density and stranding in the left renal bed which is stable from th e exam of 06/20/18. IMPRESSION: 1. No evidence of pulmonary embolus. 2. Question hazy ground glass infiltrate in the posterior left lower lobe. This appears new from recent CT to the lung bases. POS: MARCIANO
[2018-08-01] MEDS ORDERED: Acetaminophen 325 MG TAB ONE (19:48)
[2018-08-01] MEDS ORDERED: Piperacillin/Tazobactam 4.5 GM VIAL ONE (21:06)
[2018-08-01] MEDS ORDERED: Vancomycin HCl 1.75 GM in Sodium Chloride 0.9% 500 ML IVPB SCH (21:45)
[2018-08-01] MEDS ORDERED: Ondansetron PF 4 MG/2 ML Vial IVP PRN (23:26)
[2018-08-01] MEDS ORDERED: Dextrose 50% Abboject 50 ML SYRINGE SLOW IVP PRN (23:26)
[2018-08-01] MEDS ORDERED: Dextrose 5% in Water 1,000 ML IV PRN (23:26)
[2018-08-01] MEDS ORDERED: Ondansetron ODT 4 MG TAB PO PRN (23:26)
[2018-08-01] MEDS ORDERED: Magnesium 2 GM/50 ML 2 GM in Premix Bag 1 BAG IVPB SCH (23:45)
[2018-08-02 00:23] LABS: Hemoglobin 8.8 g/dL (12.0-16.0)
[2018-08-02] MEDS: Sodium Chloride 0.9% 1,000 ML IV SCH ×3 (00:32→21:25)
[2018-08-02] MEDS: Acetaminophen 325 MG TAB PO PRN ×2 (00:47→09:37)
[2018-08-02 00:58] VITALS: BMI 41.2
[2018-08-02 05:41] LABS: #Lymphocytes 0.5 thou/uL (1.20-3.40); #Monocytes 0.2 thou/uL (0.11-0.59); #Neutrophils 1.5 thou/uL (1.40-6.50); %Basophils 0.6 % (0.0-1.0); %Eosinophils 1.1 % (0.0-10.0); %Lymphocytes 21.2 % (21.0-51.0); %Neutrophils 69.1 % (42.0-75.0); Hemoglobin 7.7 g/dL (12.0-16.0); Mean Corpuscular HGB CONC 33.5 g/dL (32.0-36.0); Mean Corpuscular Hemoglobin 30.9 pg (27.0-31.0); Mean Corpuscular Volume 92.1 fL (78.0-98.0); Mean Platelet Volume 6.8 fL (7.4-10.4); Platelet Count 178 thou/uL (130-400); RBC Distribution Width 15.6 % (11.5-14.5); Red Blood Cell (RBC) Count 2.48 mill/uL (4.20-5.40); White Blood Cell (WBC) Count 2.2 thou/uL (4.8-10.8)
[2018-08-02 06:10] LABS: Anion Gap 13 mmol/L (10-20); BUN (Urea Nitrogen) 25 mg/dL (9.8-20.1); Calc. Creatinine Clearance 94 mL/min (70-130); Calcium 8.5 mg/dL (7.8-10.44); Carbon Dioxide 20 mmol/L (23-31); Chloride 110 mmol/L (98-107); Estimated GFR-MDRD 55; Glucose 148 mg/dL (83-110); Potassium 4.6 mmol/L (3.5-5.1); Sodium 138 mmol/L (136-145)
--- NOTE | 2018-08-02 07:56 | HP ---
PRIMARY CARE DOCTOR: The patient goes to [facility]. CODE STATUS: Full code. TIME OF EVALUATION: 10:45 p.m. CHIEF COMPLAINT: Weakness. HISTORY OF PRESENT ILLNESS: A 73-year-old female patient with past medical history of diabetes type 2, hypertension, malignancy of the kidney came to the hospital after having generalized weakness, shortness of breath, the symptoms have been present for the past few days and got worse yesterday, and got pretty severe. The patient then unable to get out of the chair, when she was getting chemo today. Symptoms were generalized, severe, unable to do her activities of daily living, symptoms are worsening. REVIEW OF SYSTEMS: CONSTITUTIONAL: No fever or chills. The patient reported generalized weakness. RESPIRATORY: No cough, sputum production, or shortness of breath. CARDIOVASCULAR: No chest pain or palpitation. GASTROINTESTINAL: No nausea, no vomiting, diarrhea, or abdominal pain. MOLD BUNCH TRIMMER: No dizziness, headache, or feeling lightheaded. GENITOURINARY: No burning on urination. EXTREMITIES: No leg swelling. All other systems were reviewed and negative except for the findings mentioned above. PAST MEDICAL HISTORY: As mentioned in the HPI. PAST SURGICAL HISTORY: Positive for nephrectomy on the right side. PSYCH HISTORY: Includes depression. SOCIAL HISTORY: No drugs, no smoking history. FAMILY HISTORY: Reviewed and noncontributory for current presentation. ALLERGIES: NO KNOWN DRUG ALLERGIES REPORTED. MEDICATIONS: 1. Aspirin. 2. Lantus. 3. Lipitor. 4. Metoprolol. 5. Sertraline. 6. Zofran. 7. Glipizide. 8. Amlodipine. PHYSICAL EXAMINATION: VITAL SIGNS: On presentation, blood pressure 113/73 with heart rate 73, respiratory rate was 20, temperature 98.5, and oxygen saturation 100. Pain was 5/10. GENERAL APPEARANCE: The patient is alert, oriented, pretty weak. HEENT: Eyes, normal conjunctivae. Moist oral mucosa. Anicteric. No JVD. RESPIRATORY: Bilateral air entry. No rales. No wheezes. Symmetric expansion. CARDIOVASCULAR: Normal rate, regular rhythm. No murmurs. No gallop. No edema. ABDOMEN: Soft. Normal bowel sounds. MUSCULOSKELETAL: Baseline range of motion and strength. No tenderness. SKIN: Warm, intact. No pallor. No rash. No redness. Peripheral pulses are present. Capillary refill seems to be intact. NEURO: No evidence of any new focal weakness. Baseline speech. Cranial nerves seems to be intact. PSYCH: The patient is in good mood. No anxiety. Optimal judgment. LABORATORY DATA: EKG was reviewed. The patient has normal sinus rhythm with a rate of 74, IA 188, QRS 100, and QT corrected 436. Chest x-ray was done. No active intrathoracic disease. CT chest was done. No evidence of pulmonary embolism haziness ground glass infiltrate in the posterior left lower lobe. This appears to be new from recent CT. Labs were reviewed. The patient has a white count 2.2, hemoglobin 7.7, and platelet count 178. Sodium 133, potassium 4.0, carbon dioxide 16, anion gap 14, BUN 30 with creatinine 1.12, GFR 48, glucose 152, and magnesium 1.3 was negative. ASSESSMENT AND PLAN: The patient will be placed in the hospital following medical problems; 1. Pneumonia as seen on the CAT scan, the patient has been restarted on antibiotics, we will follow cultures. We will adjust treatment as per sensitivity. The patient has received chemo in the past, so has high risk of multilobe resistant organism catched in the hospital. For that reason, we will cover with vancomycin and cefepime, We will follow cultures and adjust per sensitivity. 2. Pancytopenia, likely secondary to chemo, as the patient has risk of complication due to immunosuppression. If count continues to drop, may need hematology to assist in this case. 3. Hyponatremia, sodium 133, this is mild, no need for any acute intervention at this point. We will monitor. 4. Uncontrolled diabetes, reconcile home medications. Place the patient on sliding scale. 5. Deep venous thrombosis prophylaxis. Job ID: [id number]
[2018-08-02] MEDS: Enoxaparin Sodium 40 MG/0.4 ML SYRINGE SC SCH (09:37)
[2018-08-02] MEDS: Vancomycin HCl 1.5 GM in Sodium Chloride 0.9% 250 ML 300 ML IVPB SCH ×3 (09:39→22:51)
[2018-08-02] MEDS: Cefepime 2 GM in Sodium Chloride 0.9% 100 ML IVPB SCH ×2 (10:50→21:22)
[2018-08-02] MEDS ORDERED: HYDROcodone/Acetaminophen 10/325 mg Tablet PO PRN (11:19)
[2018-08-02] MEDS: HumaLOG 300 UNITS/3 ML VIAL SC PRN ×2 (11:44→17:51)
[2018-08-02 13:35] LABS: Hemoglobin 7.8 g/dL (12.0-16.0)
--- NOTE | 2018-08-02 13:46 | PDOC.PN ---
- Subjective Encounter Start Date: 08/02/18 Encounter Start Time: 07:00 Pt seen for followup re: pneumonia. Says she still feels weak and short of breath. - Objective Resuscitation Status - Order Detail: 08/01/18 23:26 Resuscitation Status Routine Resuscitation Status: FULL: Full Resuscitation MAR Reviewed: Yes Vital Signs & Weight: Vital Signs (12 hours) Temp Pulse Resp BP Pulse Ox 08/02/18 11:48 98.3 F 82 20 133/73 100 08/02/18 07:25 98.0 F 101 H 20 102/62 100 08/02/18 04:00 98.6 F 96 16 158/74 H 95 Weight Weight 255 lb I&O: 08/01/18 08/02/18 08/03/18 06:59 06:59 06:59 Intake Total 1140 100 Balance 1140 100 Result Diagrams: 08/02/18 13:14 08/02/18 05:17 Additional Labs: Accuchecks 08/02/18 08/02/18 08/02/18 10:39 06:18 01:04 POC Glucose 164 H 152 H 177 H EKG Reviewed by me: Yes (Tele: NSR) Phys Exam - Physical Examination Morbid obesity HEENT: moist MMs, sclera anicteric, oral pharynx no lesions, 2+ tonsils Neck: no nodes, no JVD, supple, full ROM Respiratory: wheezing present Cardiovascular: RRR, no rub S1, s2 Gastrointestinal: soft, non-tender, no distention, positive bowel sounds Neurological: moves all 4 limbs Psychiatric: normal affect, A&O x 3 Dx/Plan (1) Pneumonia Code(s): J18.9 - PNEUMONIA, UNSPECIFIED ORGANISM Status: Acute Comment: continue IV antibiotics as below, await blood cultures. (2) DM2 (diabetes mellitus, type 2) Status: Chronic Comment: relatively controlled (3) HTN (hypertension) Code(s): I10 - ESSENTIAL (PRIMARY) HYPERTENSION Status: Chronic Comment: controlled (4) Hyponatremia Code(s): E87.1 - HYPO-OSMOLALITY AND HYPONATREMIA Status: Resolved (5) VINNY (acute kidney injury) Code(s): N17.9 - ACUTE KIDNEY FAILURE, UNSPECIFIED Status: Resolved - Plan plan discussed w/ family, continue antibiotics, out of bed/ambulate * . Review of Systems - Review of Systems Constitutional: weakness. negative: fever, chills, sweats, malaise Respiratory: Cough, SOB with Excertion, Sputum. negative: Dry, Shortness of Breath, Hemoptysis, Pleuritic Pain, Wheezing Cardiovascular: negative: chest pain, palpitations, orthopnea, paroxysmal nocturnal dyspnea, edema, light headedness Gastrointestinal: negative: Nausea, Vomiting, Abdominal Pain, Diarrhea, Constipation, Melena, Hematochezia Genitourinary: negative: Dysuria, Frequency, Incontinence, Hematuria, Retention - Medications/Allergies Allergies/Adverse Reactions: Allergies Allergy/AdvReac Type Severity Reaction Status Date / Time No Known Allergies Allergy Verified 04/25/17 01:07 Medications: Current Medications Acetaminophen (Tylenol) 650 mg PO Q4H PRN PRN Reason: Headache/Fever/Mild Pain (1-3) Last Admin: 08/02/18 09:37 Dose: 650 mg Hydrocodone Bitart/Acetaminophen ([place] 10/325) 1 tab PO Q4H PRN PRN Reason: Moderate Pain (4-6) Hydrocodone Bitart/Acetaminophen ([place] 10/325) 2 tab PO Q4H PRN PRN Reason: Severe Pain (7-10) Dextrose/Water (Dextrose 50%) 25 gm SLOW IVP PRN PRN PRN Reason: Hypoglycemia Enoxaparin Sodium (Lovenox) 40 mg SC 0900 [facility] Last Admin: 08/02/18 09:37 Dose: 40 mg Glucagon (Glucagon) 1 mg IM PRN PRN PRN Reason: Hypoglycemia Cefepime HCl 2 gm/ Sodium (Chloride) 100 mls @ 200 mls/hr IVPB Q12HR [facility] Last Admin: 08/02/18 10:50 Dose: 100 mls Dextrose/Water (D5w) 1,000 mls @ 0 mls/hr IV .Q0M PRN PRN Reason: Hypoglycemia Sodium Chloride (Normal Saline 0.9%) 1,000 mls @ 100 mls/hr IV .Q10H [facility] Last Admin: 08/02/18 00:32 Dose: 1,000 mls Vancomycin HCl 1.5 gm/ Sodium (Chloride) 300 mls @ 200 mls/hr IVPB 2100 [facility] Insulin Human Lispro (Humalog) 0 units SC .MILD SLIDING SCALE PRN PRN Reason: Mild Correctional Scale Last Admin: 08/02/18 11:44 Dose: 2 unit Miscellaneous Medication (Pharmacy To Dose) 1 each IVPB PRN PRN PRN Reason: Pharmacy to dose Ondansetron HCl (Zofran Odt) 4 mg PO Q6H PRN PRN Reason: Nausea/Vomiting Ondansetron HCl (Zofran) 4 mg IVP Q6H PRN PRN Reason: Nausea/Vomiting
[2018-08-02] MEDS: HYDROcodone/Acetaminophen 10/325 mg Tablet PO PRN ×2 (14:05→21:22)
[2018-08-02 18:13] LABS: Hemoglobin 7.8 g/dL (12.0-16.0)
--- NOTE | 2018-08-02 18:37 | CON ---
DATE OF CONSULTATION: REASON FOR CONSULTATION: Transitional cell carcinoma. HISTORY OF PRESENT ILLNESS: Ms. 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 She presented to the clinic yesterday with acute onset of shortness of breath and weakness. Her last chemotherapy was on July 30. CBC done in our office showed a white count of 3.0 and a hemoglobin of 8.3. Her O2 saturation was 96%. I was concerned about a possible pulmonary embolus, so she was referred to the emergency room for further workup. Chest x-ray showed questionable ground-glass infiltrate in the posterior lower lobe concerning for possible pneumonia. She had no evidence of pulmonary embolus. She was admitted for IV hydration and antibiotics. PAST MEDICAL HISTORY: 1. Recurrent transitional cell carcinoma. 2. Diabetes mellitus. 3. Hypertension. 4. Hyperlipidemia. 5. Kidney disease. PAST SURGICAL HISTORY: 1. Laparoscopic left nephrectomy in 2016. 2. Cystoscopy in 2016. 3. AKHIL-BSO in 1982. 4. Bilateral knee replacement in 2015. 5. Cholecystectomy. ALLERGIES: NO KNOWN DRUG ALLERGIES. HOME MEDICATIONS: 1. Accupril 20 mg daily. 2. Aspirin 81 mg daily. 3. Glucotrol 10 mg b.i.d. 4. Lantus 45 units b.i.d. 5. Lipitor daily. 6. Methadone 10 mg b.i.d. 7. [place] 10/325 one to two q.4 hours p.r.n. 8. Norvasc 10 mg daily. 9. Sertraline 100 mg daily. 10. Vitamin B12 daily. FAMILY HISTORY: Noncontributory. SOCIAL HISTORY: The patient is single. Has no children. Lives at home with one of her nieces. No alcohol, tobacco, or illicit drug use. REVIEW OF SYSTEMS: Positive for headache, weakness, and fatigue. Otherwise, negative. PHYSICAL EXAMINATION: VITAL SIGNS: Temperature is 98.0, pulse is 101, respiratory rate 20, BP is 102/62. She is 100% on room air. GENERAL: Well-developed, well-nourished female, in no acute distress. HEENT: Normocephalic and atraumatic. Pupils are equal and reactive to light. NECK: Supple. CV: Regular rate and rhythm. LUNGS: Clear anteriorly. ABDOMEN: Obese and nontender. Bowel sounds are positive. EXTREMITIES: No clubbing, cyanosis, or edema. SKIN: No rash. HEMATOLOGICAL: No petechiae or purpura. NEUROLOGIC: Nonfocal. PSYCHIATRIC: The patient is alert, oriented, and appropriate. LABORATORY DATA: PERTINENT LABS AND X-RAYS: Current WBCs 2.2, hemoglobin 7.7, hematocrit 22.9, platelet counts are 178,000, 69% neutrophils, 21% lymphocytes. Sodium is 138, potassium 4.6, chloride 110, CO2 is 20, BUN is 25, creatinine 0.99, calcium 8.5, magnesium 1.3. Total bilirubin is 0.4, AST is 15, ALT is 14, alkaline phosphatase is 82. Creatine kinase is 38. BNP is 88. Serum total protein is 6.3, albumin 3.5, globulin 2.8. Urine is negative. ASSESSMENT: 1. Recurrent transitional cell carcinoma, status post chemotherapy. 2. Acute onset of shortness of breath with possible pneumonia. 3. Anemia secondary to chemotherapy. 4. Acute kidney injury. DISCUSSION: The patient has been given IV fluids with resolution of her elevated creatinine. She has been started on IV antibiotics. Her white count is low; however, she is not neutropenic. Her hemoglobin is dropped overnight, likely delusional from IV fluids. We would continue antibiotics, IV fluids, and supportive care. I will resume her pain medication as she takes narcotics daily for pain control. Thank you for the consult. We will follow along. Job ID: [id number]
[2018-08-03] MEDS: Sodium Chloride 0.9% 1,000 ML IV SCH ×2 (03:26→15:15)
[2018-08-03] MEDS: HumaLOG 300 UNITS/3 ML VIAL SC PRN ×3 (06:03→17:29)
[2018-08-03] MEDS: HYDROcodone/Acetaminophen 10/325 mg Tablet PO PRN ×2 (08:56→18:35)
[2018-08-03 09:14] LABS: #Lymphocytes 0.5 thou/uL (1.20-3.40); #Monocytes 0.1 thou/uL (0.11-0.59); #Neutrophils 1.2 thou/uL (1.40-6.50); %Eosinophils 0.8 % (0.0-10.0); %Lymphocytes 26.1 % (21.0-51.0); %Monocytes 5.7 % (0.0-10.0); %Neutrophils 67.5 % (42.0-75.0); Hemoglobin 7.3 g/dL (12.0-16.0); Mean Corpuscular HGB CONC 34.1 g/dL (32.0-36.0); Mean Corpuscular Hemoglobin 30.7 pg (27.0-31.0); Mean Corpuscular Volume 89.9 fL (78.0-98.0); Mean Platelet Volume 6.4 fL (7.4-10.4); Platelet Count 154 thou/uL (130-400); RBC Distribution Width 15.9 % (11.5-14.5); Red Blood Cell (RBC) Count 2.38 mill/uL (4.20-5.40); White Blood Cell (WBC) Count 1.8 thou/uL (4.8-10.8)
[2018-08-03 09:29] LABS: Anion Gap 11 mmol/L (10-20); BUN (Urea Nitrogen) 18 mg/dL (9.8-20.1); Calc. Creatinine Clearance 86 mL/min (70-130); Calcium 8.3 mg/dL (7.8-10.44); Carbon Dioxide 18 mmol/L (23-31); Chloride 111 mmol/L (98-107); Estimated GFR-MDRD 53; Glucose 218 mg/dL (83-110); Potassium 4.3 mmol/L (3.5-5.1); Sodium 136 mmol/L (136-145)
[2018-08-03] MEDS: Enoxaparin Sodium 40 MG/0.4 ML SYRINGE SC SCH (09:53)
[2018-08-03] MEDS: Cefepime 2 GM in Sodium Chloride 0.9% 100 ML IVPB SCH ×2 (09:54→21:30)
--- NOTE | 2018-08-03 14:23 | PDOC.PN ---
- Subjective Encounter Start Date: 08/03/18 Encounter Start Time: 09:00 Pt seen for followup re: hypotension. Reports she feels weak. No nausea or vomiting. - Objective Resuscitation Status - Order Detail: 08/01/18 23:26 Resuscitation Status Routine Resuscitation Status: FULL: Full Resuscitation MAR Reviewed: Yes Vital Signs & Weight: Vital Signs (12 hours) Temp Pulse Resp BP BP BP Pulse Ox 08/03/18 11:27 123 H 85/61 L 08/03/18 11:25 97.9 F 118 H 18 81/56 L 97 08/03/18 10:00 109/62 08/03/18 09:20 169/88 H 08/03/18 09:07 89/69 L 08/03/18 07:32 98.8 F 120 H 18 84/55 L 97 08/03/18 04:00 98.8 F 119 H 20 100/55 L 97 Weight Weight 244 lb 9.6 oz I&O: 08/02/18 08/03/18 08/04/18 06:59 06:59 06:59 Intake Total 1140 3660 100 Balance 1140 3660 100 Result Diagrams: 08/03/18 08:56 08/03/18 08:56 Additional Labs: Accuchecks 08/03/18 08/03/18 08/02/18 10:43 05:34 19:10 POC Glucose 312 H 249 H 282 H 08/02/18 16:59 POC Glucose 243 H EKG Reviewed by me: Yes (Tele; NSR) Phys Exam - Physical Examination Obese HEENT: moist MMs Neck: supple Respiratory: clear to auscultation bilateral Cardiovascular: RRR Gastrointestinal: positive bowel sounds Neurological: non-focal Psychiatric: normal affect Dx/Plan (1) Hypotension Status: Acute Comment: Improving with fluid resuscitation. (2) Pneumonia Code(s): J18.9 - PNEUMONIA, UNSPECIFIED ORGANISM Status: Acute Comment: continue IV cefepime and vancomycin, await blood cultures. (3) DM2 (diabetes mellitus, type 2) Status: Chronic Comment: blood sugars high, switch to moderate insulin sliding scale (4) HTN (hypertension) Code(s): I10 - ESSENTIAL (PRIMARY) HYPERTENSION Status: Chronic Comment: controlled (5) Hyponatremia Code(s): E87.1 - HYPO-OSMOLALITY AND HYPONATREMIA Status: Resolved (6) VINNY (acute kidney injury) Code(s): N17.9 - ACUTE KIDNEY FAILURE, UNSPECIFIED Status: Resolved - Plan continue antibiotics, out of bed/ambulate * . Pt is hypotensive, also has pneumonia, on IV antibiotics. High risk of worsening morbidity if discharged home today. Will change pt's stay to inpatient. Review of Systems - Medications/Allergies Allergies/Adverse Reactions: Allergies Allergy/AdvReac Type Severity Reaction Status Date / Time No Known Allergies Allergy Verified 04/25/17 01:07 Medications: Current Medications Acetaminophen (Tylenol) 650 mg PO Q4H PRN PRN Reason: Headache/Fever/Mild Pain (1-3) Last Admin: 08/02/18 09:37 Dose: 650 mg Hydrocodone Bitart/Acetaminophen ([place] 10/325) 1 tab PO Q4H PRN PRN Reason: Moderate Pain (4-6) Hydrocodone Bitart/Acetaminophen ([place] 10/325) 2 tab PO Q4H PRN PRN Reason: Severe Pain (7-10) Last Admin: 08/03/18 08:56 Dose: 2 tab Dextrose/Water (Dextrose 50%) 25 gm SLOW IVP PRN PRN PRN Reason: Hypoglycemia Enoxaparin Sodium (Lovenox) 40 mg SC 0900 [facility] Last Admin: 08/03/18 09:53 Dose: 40 mg Glucagon (Glucagon) 1 mg IM PRN PRN PRN Reason: Hypoglycemia Cefepime HCl 2 gm/ Sodium (Chloride) 100 mls @ 200 mls/hr IVPB Q12HR [facility] Last Admin: 08/03/18 09:54 Dose: 100 mls Dextrose/Water (D5w) 1,000 mls @ 0 mls/hr IV .Q0M PRN PRN Reason: Hypoglycemia Sodium Chloride (Normal Saline 0.9%) 1,000 mls @ 100 mls/hr IV .Q10H [facility] Last Admin: 08/03/18 03:26 Dose: 1,000 mls Vancomycin HCl 1.5 gm/ Sodium (Chloride) 300 mls @ 200 mls/hr IVPB 2100 [facility] Last Admin: 08/02/18 22:51 Dose: 300 mls Insulin Human Lispro (Humalog) 0 units SC .MILD SLIDING SCALE PRN PRN Reason: Mild Correctional Scale Last Admin: 08/03/18 11:27 Dose: 5 unit Miscellaneous Medication (Pharmacy To Dose) 1 each IVPB PRN PRN PRN Reason: Pharmacy to dose Ondansetron HCl (Zofran Odt) 4 mg PO Q6H PRN PRN Reason: Nausea/Vomiting Ondansetron HCl (Zofran) 4 mg IVP Q6H PRN PRN Reason: Nausea/Vomiting
[2018-08-03 22:06] LABS: Vancomycin, Trough 13.7 ug/mL
[2018-08-03] MEDS: Vancomycin HCl 1.5 GM in Sodium Chloride 0.9% 250 ML 300 ML IVPB SCH (23:00)
[2018-08-04] MEDS: Sodium Chloride 0.9% 1,000 ML IV SCH ×3 (02:00→23:34)
[2018-08-04 05:38] LABS: #Lymphocytes 0.5 thou/uL (1.20-3.40); #Monocytes 0.1 thou/uL (0.11-0.59); #Neutrophils 1.5 thou/uL (1.40-6.50); %Basophils 0.3 % (0.0-1.0); %Lymphocytes 23.3 % (21.0-51.0); %Neutrophils 69.4 % (42.0-75.0); Hemoglobin 6.9 g/dL (12.0-16.0); Mean Corpuscular HGB CONC 32.9 g/dL (32.0-36.0); Mean Corpuscular Hemoglobin 30.8 pg (27.0-31.0); Mean Corpuscular Volume 93.6 fL (78.0-98.0); Mean Platelet Volume 6.9 fL (7.4-10.4); Platelet Count 145 thou/uL (130-400); RBC Distribution Width 16.4 % (11.5-14.5); Red Blood Cell (RBC) Count 2.24 mill/uL (4.20-5.40); White Blood Cell (WBC) Count 2.2 thou/uL (4.8-10.8)
[2018-08-04 05:56] LABS: Anion Gap 10 mmol/L (10-20); BUN (Urea Nitrogen) 13 mg/dL (9.8-20.1); Calc. Creatinine Clearance 109 mL/min (70-130); Calcium 8.6 mg/dL (7.8-10.44); Carbon Dioxide 19 mmol/L (23-31); Chloride 111 mmol/L (98-107); Estimated GFR-MDRD 70; Glucose 240 mg/dL (83-110); Potassium 4.5 mmol/L (3.5-5.1); Sodium 135 mmol/L (136-145)
[2018-08-04] MEDS: Cefepime 2 GM in Sodium Chloride 0.9% 100 ML IVPB SCH ×2 (09:20→19:59)
[2018-08-04] MEDS: Enoxaparin Sodium 40 MG/0.4 ML SYRINGE SC SCH (09:20)
[2018-08-04] MEDS: HYDROcodone/Acetaminophen 10/325 mg Tablet PO PRN (12:39)
[2018-08-04] MEDS: HumaLOG 300 UNITS/3 ML VIAL SC PRN ×2 (12:40→17:06)
--- NOTE | 2018-08-04 13:50 | PDOC.PN ---
- Subjective Encounter Start Date: 08/04/18 Encounter Start Time: 07:00 Pt seen for followup re: pneumonia. Cough+. Occ epistaxis+. - Objective Resuscitation Status - Order Detail: 08/01/18 23:26 Resuscitation Status Routine Resuscitation Status: FULL: Full Resuscitation Vital Signs & Weight: Vital Signs (12 hours) Temp Pulse Resp BP BP Pulse Ox 08/04/18 12:00 98.1 F 110 H 16 120/64 97 08/04/18 08:00 98.7 F 125 H 20 142/84 H 95 08/04/18 03:28 98.8 F 117 H 24 H 124/83 97 Weight Weight 243 lb I&O: 08/03/18 08/04/18 08/05/18 06:59 06:59 06:59 Intake Total 3660 2418 240 Balance 3660 2418 240 Result Diagrams: 08/04/18 05:14 08/04/18 05:14 Additional Labs: Accuchecks 08/04/18 08/04/18 08/03/18 11:06 05:20 21:09 POC Glucose 334 H 258 H 244 H 08/03/18 16:46 POC Glucose 299 H Phys Exam - Physical Examination Constitutional: NAD HEENT: moist MMs Neck: supple Respiratory: clear to auscultation bilateral Cardiovascular: RRR Gastrointestinal: soft Neurological: moves all 4 limbs Psychiatric: normal affect Dx/Plan (1) Pneumonia Code(s): J18.9 - PNEUMONIA, UNSPECIFIED ORGANISM Status: Acute Comment: continue IV cefepime and vancomycin, preliminary blood cultures are negative. Repeat chest x-ray (2) DM2 (diabetes mellitus, type 2) Status: Chronic Comment: blood sugars are still high, switch to aggressive insulin sliding scale (3) HTN (hypertension) Code(s): I10 - ESSENTIAL (PRIMARY) HYPERTENSION Status: Chronic Comment: controlled (4) Hyponatremia Code(s): E87.1 - HYPO-OSMOLALITY AND HYPONATREMIA Status: Resolved (5) VINNY (acute kidney injury) Code(s): N17.9 - ACUTE KIDNEY FAILURE, UNSPECIFIED Status: Resolved (6) Hypotension Status: Resolved - Plan * . Epistaxis resolving, likely due to heating Review of Systems - Review of Systems ENT: Other (epistaxis) Respiratory: Cough, Dry. negative: Shortness of Breath, Hemoptysis, SOB with Excertion, Pleuritic Pain, Sputum, Wheezing Cardiovascular: negative: chest pain, palpitations, orthopnea, paroxysmal nocturnal dyspnea, edema, light headedness - Medications/Allergies Allergies/Adverse Reactions: Allergies Allergy/AdvReac Type Severity Reaction Status Date / Time No Known Allergies Allergy Verified 04/25/17 01:07 Medications: Current Medications Acetaminophen (Tylenol) 650 mg PO Q4H PRN PRN Reason: Headache/Fever/Mild Pain (1-3) Last Admin: 08/02/18 09:37 Dose: 650 mg Hydrocodone Bitart/Acetaminophen ([place] 10/325) 1 tab PO Q4H PRN PRN Reason: Moderate Pain (4-6) Hydrocodone Bitart/Acetaminophen ([place] 10/325) 2 tab PO Q4H PRN PRN Reason: Severe Pain (7-10) Last Admin: 08/04/18 12:39 Dose: 2 tab Dextrose/Water (Dextrose 50%) 25 gm SLOW IVP PRN PRN PRN Reason: Hypoglycemia Enoxaparin Sodium (Lovenox) 40 mg SC 0900 [facility] Last Admin: 08/04/18 09:20 Dose: 40 mg Glucagon (Glucagon) 1 mg IM PRN PRN PRN Reason: Hypoglycemia Cefepime HCl 2 gm/ Sodium (Chloride) 100 mls @ 200 mls/hr IVPB Q12HR [facility] Last Admin: 08/04/18 09:20 Dose: 100 mls Dextrose/Water (D5w) 1,000 mls @ 0 mls/hr IV .Q0M PRN PRN Reason: Hypoglycemia Sodium Chloride (Normal Saline 0.9%) 1,000 mls @ 100 mls/hr IV .Q10H [facility] Last Admin: 08/04/18 12:39 Dose: 1,000 mls Vancomycin HCl 1.5 gm/ Sodium (Chloride) 300 mls @ 200 mls/hr IVPB 2100 [facility] Last Admin: 08/03/18 23:00 Dose: 300 mls Insulin Human Lispro (Humalog) 0 units SC .MODERATE SLIDING SC PRN PRN Reason: Moderate Correctional Scale Last Admin: 08/04/18 12:40 Dose: 8 unit Miscellaneous Medication (Pharmacy To Dose) 1 each IVPB PRN PRN PRN Reason: Pharmacy to dose Ondansetron HCl (Zofran Odt) 4 mg PO Q6H PRN PRN Reason: Nausea/Vomiting Ondansetron HCl (Zofran) 4 mg IVP Q6H PRN PRN Reason: Nausea/Vomiting
--- NOTE | 2018-08-04 15:27 | RAD ---
CHEST 2 VIEWS: Date: 08/04/18 HISTORY: Chest pain. COMPARISON: 08/01/18. FINDINGS: Cardiac silhouette is magnified by projection. Pulmonary vasculature is unremarkable. Mild linear ate lectasis at the left lateral costophrenic angle. Calcified granulomata are consistent with healed gra nulomatous disease. Left subclavian Port-A-Cath in place. No evidence of pneumothorax or pleural flui d. IMPRESSION: Minimal linear atelectasis at the left lung base. No lobar consolidation or focal infiltrate. POS: H
[2018-08-04] MEDS: Vancomycin HCl 1.5 GM in Sodium Chloride 0.9% 250 ML 300 ML IVPB SCH (19:58)
[2018-08-05] MEDS: Sodium Chloride 0.9% 1,000 ML IV SCH ×2 (02:35→16:11)
[2018-08-05] MEDS: HYDROcodone/Acetaminophen 10/325 mg Tablet PO PRN ×2 (02:37→16:08)
[2018-08-05 05:47] LABS: #Lymphocytes 0.5 thou/uL (1.20-3.40); #Monocytes 0.2 thou/uL (0.11-0.59); #Neutrophils 1.4 thou/uL (1.40-6.50); %Eosinophils 1.2 % (0.0-10.0); %Lymphocytes 23.4 % (21.0-51.0); %Monocytes 8.7 % (0.0-10.0); %Neutrophils 65.7 % (42.0-75.0); Mean Corpuscular HGB CONC 33.1 g/dL (32.0-36.0); Mean Corpuscular Hemoglobin 30.4 pg (27.0-31.0); Mean Corpuscular Volume 91.8 fL (78.0-98.0); Mean Platelet Volume 6.9 fL (7.4-10.4); Platelet Count 190 thou/uL (130-400); RBC Distribution Width 16.3 % (11.5-14.5); White Blood Cell (WBC) Count 2.2 thou/uL (4.8-10.8)
[2018-08-05] MEDS: HumaLOG 300 UNITS/3 ML VIAL SC PRN ×4 (06:14→20:51)
[2018-08-05 06:21] LABS: BUN (Urea Nitrogen) 11 mg/dL (9.8-20.1); Calc. Creatinine Clearance 104 mL/min (70-130); Calcium 8.8 mg/dL (7.8-10.44); Carbon Dioxide 21 mmol/L (23-31); Chloride 108 mmol/L (98-107); Estimated GFR-MDRD 66; Glucose 283 mg/dL (83-110); Sodium 136 mmol/L (136-145)
[2018-08-05 06:28] LABS: Anion Gap 12 mmol/L (10-20)
[2018-08-05] MEDS: Enoxaparin Sodium 40 MG/0.4 ML SYRINGE SC SCH (09:23)
[2018-08-05] MEDS: Cefepime 2 GM in Sodium Chloride 0.9% 100 ML IVPB SCH ×2 (09:23→20:52)
[2018-08-05] MEDS ORDERED: PROVENTIL INHALER 6.7 G (200 INHALATIONS) INH PRN (12:07)
[2018-08-05] MEDS ORDERED: Docusate 100 MG CAP PO PRN (12:07)
--- NOTE | 2018-08-05 12:07 | PDOC.PN ---
- Subjective Encounter Start Date: 08/05/18 Encounter Start Time: 07:00 Pt seen for followup re: pneumonia. Feels slightly better. Cough+ - Objective Resuscitation Status - Order Detail: 08/01/18 23:26 Resuscitation Status Routine Resuscitation Status: FULL: Full Resuscitation MAR Reviewed: Yes Vital Signs & Weight: Vital Signs (12 hours) Temp Pulse Resp BP Pulse Ox 08/05/18 11:54 98.5 F 112 H 20 119/77 98 08/05/18 08:00 98.2 F 121 H 20 114/63 99 08/05/18 04:00 98.6 F 124 H 16 101/61 97 Weight Weight 243 lb 1.6 oz I&O: 08/04/18 08/05/18 08/06/18 06:59 06:59 06:59 Intake Total 2418 3480 Output Total 2750 Balance 2418 730 Result Diagrams: 08/05/18 04:20 08/05/18 04:20 Additional Labs: Accuchecks 08/05/18 08/05/18 08/04/18 10:36 06:11 20:08 POC Glucose 234 H 285 H 265 H 08/04/18 16:43 POC Glucose 265 H EKG Reviewed by me: Yes (Tele: sinus tachycardia) Phys Exam - Physical Examination Constitutional: NAD HEENT: moist MMs Neck: supple Respiratory: clear to auscultation bilateral Cardiovascular: RRR Gastrointestinal: soft Neurological: moves all 4 limbs Psychiatric: normal affect Dx/Plan (1) Pneumonia Code(s): J18.9 - PNEUMONIA, UNSPECIFIED ORGANISM Status: Acute Comment: on IV cefepime and vancomycin, preliminary blood cultures are still negative. Repeat chest x-ray reassuring. (2) DM2 (diabetes mellitus, type 2) Status: Chronic Comment: resume glipizide, lantus insulin (3) HTN (hypertension) Code(s): I10 - ESSENTIAL (PRIMARY) HYPERTENSION Status: Chronic Comment: controlled (4) Hyponatremia Code(s): E87.1 - HYPO-OSMOLALITY AND HYPONATREMIA Status: Resolved (5) VINNY (acute kidney injury) Code(s): N17.9 - ACUTE KIDNEY FAILURE, UNSPECIFIED Status: Resolved (6) Hypotension Status: Resolved - Plan * . Review of Systems - Review of Systems Constitutional: negative: fever, chills, sweats, weakness, malaise Respiratory: Cough, Dry, SOB with Excertion. negative: Shortness of Breath, Hemoptysis, Pleuritic Pain, Sputum - Medications/Allergies Allergies/Adverse Reactions: Allergies Allergy/AdvReac Type Severity Reaction Status Date / Time No Known Allergies Allergy Verified 04/25/17 01:07 Medications: Current Medications Acetaminophen (Tylenol) 650 mg PO Q4H PRN PRN Reason: Headache/Fever/Mild Pain (1-3) Last Admin: 08/02/18 09:37 Dose: 650 mg Hydrocodone Bitart/Acetaminophen ([place] 10/325) 1 tab PO Q4H PRN PRN Reason: Moderate Pain (4-6) Hydrocodone Bitart/Acetaminophen ([place] 10/325) 2 tab PO Q4H PRN PRN Reason: Severe Pain (7-10) Last Admin: 08/05/18 02:37 Dose: 2 tab Dextrose/Water (Dextrose 50%) 25 gm SLOW IVP PRN PRN PRN Reason: Hypoglycemia Enoxaparin Sodium (Lovenox) 40 mg SC 0900 [facility] Last Admin: 08/05/18 09:23 Dose: 40 mg Glucagon (Glucagon) 1 mg IM PRN PRN PRN Reason: Hypoglycemia Cefepime HCl 2 gm/ Sodium (Chloride) 100 mls @ 200 mls/hr IVPB Q12HR [facility] Last Admin: 08/05/18 09:23 Dose: 100 mls Dextrose/Water (D5w) 1,000 mls @ 0 mls/hr IV .Q0M PRN PRN Reason: Hypoglycemia Sodium Chloride (Normal Saline 0.9%) 1,000 mls @ 100 mls/hr IV .Q10H [facility] Last Admin: 08/05/18 02:35 Dose: 1,000 mls Vancomycin HCl 1.5 gm/ Sodium (Chloride) 300 mls @ 200 mls/hr IVPB 2100 [facility] Last Admin: 08/04/18 19:58 Dose: 300 mls Insulin Human Lispro (Humalog) 0 units SC .AGGRESSIVE SLIDING PRN PRN Reason: Aggressive Correctional Scale Last Admin: 08/05/18 11:26 Dose: 6 unit Miscellaneous Medication (Pharmacy To Dose) 1 each IVPB PRN PRN PRN Reason: Pharmacy to dose Ondansetron HCl (Zofran Odt) 4 mg PO Q6H PRN PRN Reason: Nausea/Vomiting Ondansetron HCl (Zofran) 4 mg IVP Q6H PRN PRN Reason: Nausea/Vomiting
[2018-08-05 20:24] LABS: Vancomycin, Trough 14.2 ug/mL
[2018-08-05] MEDS: glipiZIDE 10 MG TAB PO SCH (20:50)
[2018-08-05] MEDS: Amlodipine 10 MG TAB PO SCH (20:50)
[2018-08-05] MEDS: Atorvastatin Calcium 10 MG TAB PO SCH (20:50)
[2018-08-05] MEDS: Insulin Glargine 30 UNITS in Pre-Filled Syringe 1 EACH SC SCH (20:51)
[2018-08-05] MEDS: Vancomycin HCl 1.5 GM in Sodium Chloride 0.9% 250 ML 300 ML IVPB SCH (20:51)
[2018-08-06] MEDS: Sodium Chloride 0.9% 1,000 ML IV SCH ×3 (04:55→21:09)
[2018-08-06 05:44] LABS: #Lymphocytes 0.6 thou/uL (1.20-3.40); #Monocytes 0.3 thou/uL (0.11-0.59); #Neutrophils 1.5 thou/uL (1.40-6.50); %Basophils 0.3 % (0.0-1.0); %Eosinophils 1.5 % (0.0-10.0); %Lymphocytes 25.1 % (21.0-51.0); %Neutrophils 62.2 % (42.0-75.0); Hemoglobin 7.4 g/dL (12.0-16.0); Mean Corpuscular HGB CONC 33.5 g/dL (32.0-36.0); Mean Corpuscular Hemoglobin 31.1 pg (27.0-31.0); Mean Corpuscular Volume 93.1 fL (78.0-98.0); Mean Platelet Volume 6.5 fL (7.4-10.4); Platelet Count 176 thou/uL (130-400); RBC Distribution Width 16.3 % (11.5-14.5); Red Blood Cell (RBC) Count 2.36 mill/uL (4.20-5.40); White Blood Cell (WBC) Count 2.5 thou/uL (4.8-10.8)
[2018-08-06 06:02] LABS: Anion Gap 12 mmol/L (10-20); BUN (Urea Nitrogen) 10 mg/dL (9.8-20.1); Calc. Creatinine Clearance 108 mL/min (70-130); Calcium 8.7 mg/dL (7.8-10.44); Carbon Dioxide 21 mmol/L (23-31); Chloride 108 mmol/L (98-107); Estimated GFR-MDRD 69; Glucose 226 mg/dL (83-110); Potassium 4.4 mmol/L (3.5-5.1); Sodium 137 mmol/L (136-145)
[2018-08-06] MEDS: HumaLOG 300 UNITS/3 ML VIAL SC PRN ×3 (06:09→17:18)
[2018-08-06] MEDS: Aspirin Chewable 81 MG TAB PO SCH (08:13)
[2018-08-06] MEDS: glipiZIDE 10 MG TAB PO SCH ×2 (08:13→21:08)
[2018-08-06] MEDS: Enoxaparin Sodium 40 MG/0.4 ML SYRINGE SC SCH (08:14)
[2018-08-06] MEDS: Cefepime 2 GM in Sodium Chloride 0.9% 100 ML IVPB SCH ×2 (08:14→21:07)
[2018-08-06] MEDS: Insulin Glargine 30 UNITS in Pre-Filled Syringe 1 EACH SC SCH ×2 (08:14→21:08)
--- NOTE | 2018-08-06 12:30 | PDOC.PN ---
- Subjective Encounter Start Date: 08/06/18 Encounter Start Time: 07:00 Pt seen for followup re: pneumonia. Feels slightly better. Not ambulating much. - Objective Resuscitation Status - Order Detail: 08/01/18 23:26 Resuscitation Status Routine Resuscitation Status: FULL: Full Resuscitation MAR Reviewed: Yes Vital Signs & Weight: Vital Signs (12 hours) Temp Pulse Resp BP Pulse Ox 08/06/18 11:22 98.9 F 105 H 20 110/69 98 08/06/18 07:37 98.9 F 105 H 20 103/57 L 98 08/06/18 04:00 98.1 F 117 H 16 104/50 L 100 Weight Weight 243 lb 11.2 oz I&O: 08/05/18 08/06/18 08/07/18 06:59 06:59 06:59 Intake Total 3480 2829 240 Output Total 2750 4000 Balance 730 -1171 240 Result Diagrams: 08/06/18 05:30 08/06/18 05:30 Additional Labs: Accuchecks 08/06/18 08/06/18 08/05/18 11:04 06:07 20:10 POC Glucose 263 H 248 H 358 H 08/05/18 16:45 POC Glucose 345 H EKG Reviewed by me: Yes (Tele: sinus tachycardia) Phys Exam - Physical Examination Obese HEENT: moist MMs Neck: supple Respiratory: clear to auscultation bilateral Cardiovascular: RRR Gastrointestinal: soft Neurological: moves all 4 limbs Psychiatric: normal affect Dx/Plan (1) Pneumonia Code(s): J18.9 - PNEUMONIA, UNSPECIFIED ORGANISM Status: Acute Comment: continue IV cefepime and vancomycin (2) DM2 (diabetes mellitus, type 2) Status: Chronic Comment: resume glipizide, lantus insulin, continue accuchecks , insulin sliding scale (3) HTN (hypertension) Code(s): I10 - ESSENTIAL (PRIMARY) HYPERTENSION Status: Chronic Comment: controlled (4) Hyponatremia Code(s): E87.1 - HYPO-OSMOLALITY AND HYPONATREMIA Status: Resolved (5) VINNY (acute kidney injury) Code(s): N17.9 - ACUTE KIDNEY FAILURE, UNSPECIFIED Status: Resolved (6) Hypotension Status: Resolved - Plan out of bed/ambulate * . Review of Systems - Review of Systems Constitutional: negative: fever, chills, sweats, weakness, malaise Respiratory: Cough, Sputum. negative: Dry, Shortness of Breath, Hemoptysis, SOB with Excertion, Pleuritic Pain, Wheezing - Medications/Allergies Allergies/Adverse Reactions: Allergies Allergy/AdvReac Type Severity Reaction Status Date / Time No Known Allergies Allergy Verified 04/25/17 01:07 Medications: Current Medications Acetaminophen (Tylenol) 650 mg PO Q4H PRN PRN Reason: Headache/Fever/Mild Pain (1-3) Last Admin: 08/02/18 09:37 Dose: 650 mg Hydrocodone Bitart/Acetaminophen ([place] 10/325) 1 tab PO Q4H PRN PRN Reason: Moderate Pain (4-6) Hydrocodone Bitart/Acetaminophen ([place] 10/325) 2 tab PO Q4H PRN PRN Reason: Severe Pain (7-10) Last Admin: 08/05/18 16:08 Dose: 2 tab Albuterol Sulfate (Proventil Hfa) 1 puff INH Q4H PRN PRN Reason: SOB &/or Wheezing Amlodipine Besylate (Norvasc) 10 mg PO [facility] Last Admin: 08/05/18 20:50 Dose: 10 mg Aspirin (Aspirin Chewable) 81 mg PO DAILY [facility] Last Admin: 08/06/18 08:13 Dose: 81 mg Atorvastatin Calcium (Lipitor) 10 mg PO [facility] Last Admin: 08/05/18 20:50 Dose: 10 mg Dextrose/Water (Dextrose 50%) 25 gm SLOW IVP PRN PRN PRN Reason: Hypoglycemia Docusate Sodium (Colace) 100 mg PO DAILY PRN PRN Reason: CONSTIPATION Enoxaparin Sodium (Lovenox) 40 mg SC 0900 [facility] Last Admin: 08/06/18 08:14 Dose: 40 mg Glipizide (Glucotrol) 10 mg PO BID [facility] Last Admin: 08/06/18 08:13 Dose: 10 mg Glucagon (Glucagon) 1 mg IM PRN PRN PRN Reason: Hypoglycemia Cefepime HCl 2 gm/ Sodium (Chloride) 100 mls @ 200 mls/hr IVPB Q12HR [facility] Last Admin: 08/06/18 08:14 Dose: 100 mls Dextrose/Water (D5w) 1,000 mls @ 0 mls/hr IV .Q0M PRN PRN Reason: Hypoglycemia Sodium Chloride (Normal Saline 0.9%) 1,000 mls @ 100 mls/hr IV .Q10H [facility] Last Admin: 08/06/18 04:55 Dose: 1,000 mls Vancomycin HCl 1.5 gm/ Sodium (Chloride) 300 mls @ 200 mls/hr IVPB 2100 [facility] Last Admin: 08/05/18 20:51 Dose: 300 mls Insulin Glargine 30 units/ (Miscellaneous Medication) 0.3 mls @ 0 mls/hr SC BID [facility] Last Admin: 08/06/18 08:14 Dose: 0.3 mls Insulin Human Lispro (Humalog) 0 units SC .AGGRESSIVE SLIDING PRN PRN Reason: Aggressive [employer]al Scale Last Admin: 08/06/18 06:09 Dose: 6 unit Metoprolol Succinate (Toprol Xl) 25 mg PO BID [facility] Last Admin: 08/06/18 09:03 Dose: 25 mg Miscellaneous Medication (Pharmacy To Dose) 1 each IVPB PRN PRN PRN Reason: Pharmacy to dose Ondansetron HCl (Zofran Odt) 4 mg PO Q6H PRN PRN Reason: Nausea/Vomiting Ondansetron HCl (Zofran) 4 mg IVP Q6H PRN PRN Reason: Nausea/Vomiting Sertraline HCl (Zoloft) 100 mg PO HS [facility] Last Admin: 08/05/18 20:50 Dose: 100 mg
[2018-08-06] MEDS: Atorvastatin Calcium 10 MG TAB PO SCH (21:08)
[2018-08-06] MEDS: Amlodipine 10 MG TAB PO SCH (21:08)
[2018-08-06] MEDS: Vancomycin HCl 1.5 GM in Sodium Chloride 0.9% 250 ML 300 ML IVPB SCH (21:08)
[2018-08-06] MEDS: Acetaminophen 325 MG TAB PO PRN (21:08)
[2018-08-07] MEDS: Enoxaparin Sodium 40 MG/0.4 ML SYRINGE SC SCH (09:05)
[2018-08-07] MEDS: Insulin Glargine 30 UNITS in Pre-Filled Syringe 1 EACH SC SCH ×2 (09:07→21:58)
[2018-08-07] MEDS: glipiZIDE 10 MG TAB PO SCH ×2 (09:09→20:10)
[2018-08-07] MEDS: Aspirin Chewable 81 MG TAB PO SCH (09:09)
[2018-08-07] MEDS: Cefepime 2 GM in Sodium Chloride 0.9% 100 ML IVPB SCH (09:09)
[2018-08-07] MEDS: Sodium Chloride 0.9% 1,000 ML IV SCH ×2 (10:21→20:10)
[2018-08-07] MEDS: Acetaminophen 325 MG TAB PO PRN ×2 (10:56→22:04)
[2018-08-07] MEDS: HumaLOG 300 UNITS/3 ML VIAL SC PRN ×2 (12:22→16:35)
--- NOTE | 2018-08-07 16:14 | PDOC.PN ---
- Subjective Encounter Start Date: 08/07/18 Encounter Start Time: 08:40 Pt seen for followup re: pneumonia. Feels better. - Objective Resuscitation Status - Order Detail: 08/01/18 23:26 Resuscitation Status Routine Resuscitation Status: FULL: Full Resuscitation Vital Signs & Weight: Vital Signs (12 hours) Temp Pulse Resp BP Pulse Ox 08/07/18 16:00 98.0 F 104 H 16 148/84 H 96 08/07/18 11:49 97.8 F 98 16 111/68 96 08/07/18 09:05 95 08/07/18 07:43 97.9 F 110 H 18 95/52 L 95 Weight Weight 243 lb 11.2 oz I&O: 08/06/18 08/07/18 08/08/18 06:59 06:59 06:59 Intake Total 2829 3410 100 Output Total 4000 400 Balance -1171 3010 100 Result Diagrams: 08/06/18 05:30 08/06/18 05:30 Additional Labs: Accuchecks 08/07/18 08/07/18 08/06/18 11:01 05:51 19:09 POC Glucose 319 H 184 H 172 H 08/06/18 16:38 POC Glucose 204 H Phys Exam - Physical Examination Constitutional: NAD HEENT: moist MMs Neck: supple Respiratory: clear to auscultation bilateral Cardiovascular: RRR Gastrointestinal: soft Neurological: moves all 4 limbs Psychiatric: normal affect Dx/Plan (1) Pneumonia Code(s): J18.9 - PNEUMONIA, UNSPECIFIED ORGANISM Status: Acute Comment: switch to oral antibiotics, improved (2) DM2 (diabetes mellitus, type 2) Status: Chronic Comment: continue accuchecks, insulin sliding scale (3) HTN (hypertension) Code(s): I10 - ESSENTIAL (PRIMARY) HYPERTENSION Status: Chronic Comment: controlled (4) Hyponatremia Code(s): E87.1 - HYPO-OSMOLALITY AND HYPONATREMIA Status: Resolved (5) VINNY (acute kidney injury) Code(s): N17.9 - ACUTE KIDNEY FAILURE, UNSPECIFIED Status: Resolved (6) Hypotension Status: Resolved - Plan * . Review of Systems - Review of Systems Respiratory: negative: Cough, Shortness of Breath, SOB with Excertion, Pleuritic Pain, Wheezing Cardiovascular: negative: chest pain, palpitations, orthopnea, paroxysmal nocturnal dyspnea, edema, light headedness - Medications/Allergies Allergies/Adverse Reactions: Allergies Allergy/AdvReac Type Severity Reaction Status Date / Time No Known Allergies Allergy Verified 04/25/17 01:07 Medications: Current Medications Acetaminophen (Tylenol) 650 mg PO Q4H PRN PRN Reason: Headache/Fever/Mild Pain (1-3) Last Admin: 08/07/18 10:56 Dose: 650 mg Hydrocodone Bitart/Acetaminophen ([place] 10/325) 1 tab PO Q4H PRN PRN Reason: Moderate Pain (4-6) Hydrocodone Bitart/Acetaminophen ([place] 10/325) 2 tab PO Q4H PRN PRN Reason: Severe Pain (7-10) Last Admin: 08/05/18 16:08 Dose: 2 tab Albuterol Sulfate (Proventil Hfa) 1 puff INH Q4H PRN PRN Reason: SOB &/or Wheezing Amlodipine Besylate (Norvasc) 10 mg PO HS [facility] Last Admin: 08/06/18 21:08 Dose: 10 mg Aspirin (Aspirin Chewable) 81 mg PO DAILY [facility] Last Admin: 08/07/18 09:09 Dose: 81 mg Atorvastatin Calcium (Lipitor) 10 mg PO HS [facility] Last Admin: 08/06/18 21:08 Dose: 10 mg Dextrose/Water (Dextrose 50%) 25 gm SLOW IVP PRN PRN PRN Reason: Hypoglycemia Docusate Sodium (Colace) 100 mg PO DAILY PRN PRN Reason: CONSTIPATION Enoxaparin Sodium (Lovenox) 40 mg SC 0900 [facility] Last Admin: 08/07/18 09:05 Dose: 40 mg Glipizide (Glucotrol) 10 mg PO BID [facility] Last Admin: 08/07/18 09:09 Dose: 10 mg Glucagon (Glucagon) 1 mg IM PRN PRN PRN Reason: Hypoglycemia Dextrose/Water (D5w) 1,000 mls @ 0 mls/hr IV .Q0M PRN PRN Reason: Hypoglycemia Sodium Chloride (Normal Saline 0.9%) 1,000 mls @ 100 mls/hr IV .Q10H [facility] Last Admin: 08/07/18 10:21 Dose: 1,000 mls Insulin Glargine 30 units/ (Miscellaneous Medication) 0.3 mls @ 0 mls/hr SC BID [facility] Last Admin: 08/07/18 09:07 Dose: 0.3 mls Insulin Human Lispro (Humalog) 0 units SC .AGGRESSIVE SLIDING PRN PRN Reason: Aggressive Correctional Scale Last Admin: 08/07/18 12:22 Dose: 11 unit Levofloxacin (Levaquin) 500 mg PO 0600 [facility] Levofloxacin (Levaquin) 500 mg PO NOW [facility] Stop: 08/07/18 17:45 Metoprolol Succinate (Toprol Xl) 25 mg PO BID [facility] Last Admin: 08/07/18 09:09 Dose: 25 mg Ondansetron HCl (Zofran Odt) 4 mg PO Q6H PRN PRN Reason: Nausea/Vomiting Ondansetron HCl (Zofran) 4 mg IVP Q6H PRN PRN Reason: Nausea/Vomiting Sertraline HCl (Zoloft) 100 mg PO [facility] Last Admin: 08/06/18 21:08 Dose: 100 mg
[2018-08-07] MEDS: Amlodipine 10 MG TAB PO SCH (20:09)
[2018-08-07] MEDS: Atorvastatin Calcium 10 MG TAB PO SCH (20:09)
[2018-08-08] MEDS: Sodium Chloride 0.9% 1,000 ML IV SCH (08:06)
[2018-08-08] MEDS: Enoxaparin Sodium 40 MG/0.4 ML SYRINGE SC SCH (08:06)
[2018-08-08] MEDS: glipiZIDE 10 MG TAB PO SCH (08:07)
[2018-08-08] MEDS: Aspirin Chewable 81 MG TAB PO SCH (08:07)
[2018-08-08] MEDS: Insulin Glargine 30 UNITS in Pre-Filled Syringe 1 EACH SC SCH (09:42)
[2018-08-08 11:30] VITALS: BP 123/84; TEMP 99.3
[2018-08-08] MEDS: HumaLOG 300 UNITS/3 ML VIAL SC PRN (11:45)
[2018-08-08] MEDS: Acetaminophen 325 MG TAB PO PRN (12:24)
--- NOTE | 2018-08-08 16:07 | DIS ---
DATE OF ADMISSION: 08/03/2018 DATE OF DISCHARGE: 08/08/2018 [facility] DISCHARGE DIAGNOSES: 1. Pneumonia, likely secondary to gram-negative organisms. 2. Hypotension, resolved. CONDITION OF PATIENT ON THE DAY OF DISCHARGE: Stable. I assessed Ms. Martínez on the day of discharge. She denies any chest pain or shortness of breath. Vital signs are stable. S1 and S2 are heard, regular. Lungs are clear to auscultation bilaterally. CONSULTATIONS DURING THIS HOSPITALIZATION: Oncology, Ms. Ally Dye. DISCHARGE MEDICATIONS: 1. Prochlorperazine 10 mg every 6 hours as needed. 2. Morphine sulfate 30 mg every 12 hours as needed. 3. Amlodipine 10 mg at bedtime. 4. Aspirin 81 mg daily. 5. Lipitor 10 mg at bedtime. 6. Docusate 100 mg daily as needed. 7. Glipizide 10 mg two times a day. 8. Lorcet one to two tablets four times a day as needed. 9. Lantus 30 units two times a day. 10. Metoprolol succinate 25 mg two times a day. 11. Sertraline 100 mg at bedtime. 12. Ventolin HFA one puff every 4 hours as needed. 13. Levofloxacin 500 mg daily for 7 more days. HOSPITAL COURSE: Ms. Martínez is a pleasant 73-year-old lady, who was admitted to [facility] for pneumonia and pancytopenia on August 02, 2018. Please refer to Dr. Hedrick's history and physical note dated August 02, 2018, for further details. Community-acquired pneumonia, likely secondary to gram-negative bacteria. She was treated with empiric antibiotics. She was also seen by Oncology Service since she is a chemotherapy patient. She gradually improved. She was transitioned to oral antibiotics and is being discharged home in a stable condition. She had episodes of hypotension, which resolved. Final blood cultures were negative. Many thanks for allowing me to participate in your patient's care. Please feel free to contact me with any questions or concerns. DISCHARGE DESTINATION: Home. Total amount of time spent coordinating this discharge: 33 minutes. Job ID: [id number]
== END 2018-08-08 13:00 | disposition home or self-care (01) | DRG 177 ==
LOC: ERS 15:38 → 2SE 23:54 → OBSVTOIN 08-03 14:31
PROVIDERS: ADMIT Hospitalist; ATTEND Hospitalist
DX: J15.6 Pneumonia due to other Gram-negative bacteria (principal); D61.810 Antineoplastic chemotherapy induced pancytopenia; E87.1 Hypo-osmolality and hyponatremia; N17.9 Acute kidney failure, unspecified; C65.2 Malignant neoplasm of left renal pelvis; I95.9 Hypotension, unspecified; Z79.4 Long term (current) use of insulin; I10 Essential (primary) hypertension; E66.01 Morbid (severe) obesity due to excess calories; Z68.39 Body mass index [BMI] 39.0-39.9, adult; E78.5 Hyperlipidemia, unspecified; Z96.653 Presence of artificial knee joint, bilateral; D64.81 Anemia due to antineoplastic chemotherapy; Z79.82 Long term (current) use of aspirin; T45.1X5A Adverse effect of antineoplastic and immunosuppressive drugs, initial encounter; Y92.9 Unspecified place or not applicable; E11.65 Type 2 diabetes mellitus with hyperglycemia
CPT/HCPCS: 36415; 36416; 51701; 71045; 71046; 71275; 80048; 80053; 80202; 81003; 81015; 82274; 82550; 83735; 83880; 84484; 85025; 87040; 87804; 93005; 96365; 96367; A4353; J0692; J1642; J1650; J1825; J1956; J2405; J2543; J3370; J3475; J7050

== ENCOUNTER 2018-08-14 08:25 | Day surgery (SDC) | payer MEDICARE, OTHER ==
[~2018-08-14 08:25] MED LIST changes: +Acetaminophen 500 MG TAB PO SCH; -ISOVUE-370 76%-LOCM 1 ML ONE; +diphenhydrAMINE 25 MG CAP PO SCH
[2018-08-14] MEDS ORDERED: Sodium Chloride 0.9% 20 ML ONE (08:40)
[2018-08-14] MEDS ORDERED: Sodium Chloride 0.9% 10 ML ONE (09:57)
[2018-08-14 11:36] VITALS: TEMP 98.2
[2018-08-14 11:48] LABS: Hemoglobin 8.8 g/dL (12.0-16.0)
[2018-08-14 13:33] VITALS: BP 134/68
== END 2018-08-14 13:34 | disposition home or self-care (01) ==
LOC: ONC/OP 08:25
PROVIDERS: ATTEND Internal Medicine Hematology & Oncology
PROC: 30233H1 Transfusion of Nonautologous Whole Blood into Peripheral Vein, Percutaneous Approach (ICD-10-PCS; principal; 2018-08-14)
DX: D64.9 Anemia, unspecified (principal); D69.6 Thrombocytopenia, unspecified; Z79.4 Long term (current) use of insulin; Z79.82 Long term (current) use of aspirin; Z79.2 Long term (current) use of antibiotics; Z79.899 Other long term (current) drug therapy
CPT/HCPCS: 36430; 85014; 85018; 86850; 86900; 86901; J1642; P9016; Q0163

== ENCOUNTER 2018-08-20 09:30 | Outpatient (CLI) | payer MEDICARE, OTHER ==
[~2018-08-20 09:30] MED LIST changes: -Acetaminophen 500 MG TAB PO SCH; +ISOVUE-370 76%-LOCM 1 ML ONE; -diphenhydrAMINE 25 MG CAP PO SCH
--- NOTE | 2018-08-20 11:45 | CT ---
CT ABDOMEN AND PELVIS WITH CONTRAST: Date: 08/20/18 Multiple axial tomograms obtained through abdomen and pelvis with IV enhancement. Multiplanar reconst ruction. INDICATION: Follow-up left renal bed mass. Comparison made to recent exam from 06/20/18. FINDINGS: Lung bases are clear. Patient is post cholecystectomy. There is mild intra and extrahepatic biliary duct dilatation which a ppears stable. There is a new subtle hypodensity in the liver along the posterior margin mid right lobe measuring ap proximately 1.3 cm. This should be followed closely for possible metastatic lesion. Pancreas unremarkable. There is a mass along the medial aspect of the spleen, which was described previously. This indents t he medial spleen. This mass appears slightly larger than on the exam of 06/20/18. On coronal plane, t his mass is measured at 2.8 cm craniocaudal x 1.8 cm width. Prior measurements were 2.6 x 1.5 cm. The mass in the left renal bed is also again seen. This mass does not appear significantly changed, c ontinuing to measure approximately 3.0 cm AP dimension in the axial plane and 3.6 cm craniocaudal in the coronal plane. There appears to be tethering of small bowel loops to this mass, which were noted previously, and there is some adjacent thickening of the small bowel wall at this site, which could r epresent involvement. This does not appear significantly changed. Right adrenal gland and right kidney are unremarkable. Bowel loops unremarkable. Aorta normal caliber. Diverticulosis sigmoid colon again noted. The patient appears to be post hysterectomy. Atherosclerotic changes in aorta again noted. IMPRESSION: 1. Mass in left renal bed does not appear significantly changed. There is suggestion of tethering of small bowel loops at this site with thickening of the adjacent small bowel wall. This was present pr eviously, although the small bowel wall thickening appears slightly more prominent today and could re present involvement. 2. The mass noted slightly more superiorly abutting the medial aspect of the spleen appears slightly larger today with dimensions given above. 3. Question a new hypodense lesion in the liver noted today. Close follow-up is recommended. POS: [facility]
== END 2018-08-20 09:31 | disposition home or self-care (01) ==
LOC: BICCT 09:30
PROVIDERS: ATTEND Internal Medicine Medical Oncology
DX: C65.2 Malignant neoplasm of left renal pelvis (principal); N28.89 Other specified disorders of kidney and ureter
CPT/HCPCS: 74177; Q9966

== ENCOUNTER 2018-09-03 15:42 | Outpatient (CLI) | payer MEDICARE, MEDICAID ==
[~2018-09-03 15:42] MED LIST changes: -ISOVUE-370 76%-LOCM 1 ML ONE; +Iopamidol 370 76% 100 ML VIAL ONE
--- NOTE | 2018-09-03 17:33 | CT ---
FExam: CT pulmonary angiogram with IV contrast and 3-D MIP reconstructions Provided clinical history: Shortness of breath FINDINGS: Comparison is made with the study dated 08/20/2018 and 08/01/2018. There is no evidence for central or segmental pulmonary embolus. There is no evidence for thoracic ly mph node enlargement. The lungs are free of significant opacity. The airway appears patent and of nor mal caliber. No pleural fluid or pneumothorax apparent. Left renal fossa and perisplenic masses are n ot optimally evaluated in the phase of contrast in which the study was acquired, appearing grossly st able with respect to the prior CT examinations. The osseous structures demonstrate no concerning lyti c or blastic lesions. IMPRESSION: No evidence for central or segmental pulmonary embolus.
== END 2018-09-03 15:43 | disposition home or self-care (01) ==
LOC: CT 15:42
PROVIDERS: ATTEND Internal Medicine Hematology & Oncology
DX: C65.2 Malignant neoplasm of left renal pelvis (principal); R06.02 Shortness of breath
CPT/HCPCS: 71275; 82565; Q9967

== ENCOUNTER 2018-09-05 14:10 | Day surgery (SDC) | payer MEDICARE, MEDICAID ==
[2018-09-05] MEDS ORDERED: Sodium Chloride 0.9% 20 ML ONE (14:42)
[2018-09-05] MEDS ORDERED: diphenhydrAMINE 25 MG CAP PO SCH (16:00)
[2018-09-05] MEDS ORDERED: Acetaminophen 500 MG TAB PO SCH (16:00)
[2018-09-05 21:39] VITALS: BP 132/69; TEMP 98.5
[2018-09-05 21:57] LABS: Hemoglobin 9.8 g/dL (12.0-16.0); Mean Corpuscular HGB CONC 34.2 g/dL (32.0-36.0); Mean Corpuscular Volume 93.6 fL (78.0-98.0); Mean Platelet Volume 6.3 fL (7.4-10.4); Platelet Count 227 thou/uL (130-400); RBC Distribution Width 15.8 % (11.5-14.5); Red Blood Cell (RBC) Count 3.07 mill/uL (4.20-5.40)
[2018-09-05 22:15] LABS: Band 4 % (5-11); Lymphocytes 24 % (21-51); MDiff Complete? YES; Monocytes 15 % (0-10); Myelocyte 1 % (0-0); Neutrophil 56 % (42-75); Nucleated RBC 4 % (0); Polychromasia SLIGHT = 2-3 cells (100X) (0-2/hpf); White Blood Cell (WBC) Count 4.1 thou/uL (4.8-10.8)
== END 2018-09-05 21:50 | disposition home or self-care (01) ==
LOC: ONC 14:10 → ONC/OP 14:10
PROVIDERS: ATTEND Internal Medicine Medical Oncology
PROC: 30233N1 Transfusion of Nonautologous Red Blood Cells into Peripheral Vein, Percutaneous Approach (ICD-10-PCS; principal; 2018-09-05)
DX: D64.9 Anemia, unspecified (principal)
CPT/HCPCS: 36415; 36430; 85025; 86850; 86900; 86901; J1642; P9016; Q0163